=== PATIENT | female | born 1965 | race Caucasian/White ===

== ENCOUNTER 2019-09-09 17:59 | Inpatient (IN) ==
--- OUTSIDE RECORDS SUMMARY | 2019-09-09 18:01 | External Medical Summary | Continuity of Care Document ---
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 Refills: 0 Procedures History of Oral Surgery Tooth Extraction Status: Completed History of Partial Colectomy - Sigmoid S tatus: Completed History of Exploratory Laparotomy Status : Completed History of Colostomy Status: Completed History of Hysteroscopy With Endometrial Ablation Status: Completed Immunizations Immunizations not documented Family History Unknown Family Member Family history of Diabetes Mellitus (V18.0) Status: Active Comments: Family History Social History - Smoking Status Never smoked tobacco Plan of Treatment Planned Observations Planned Goals not documented Results No Known Results Results not documented
--- NOTE | 2019-09-09 18:52 | Emergency Department Note ---
Impression & Plan Acute pancreatitis, Abdominal pain, Transaminitis ED Provider Note NAME: DOTTY BARAJAS AGE: 54 SEX: F : 1965 ARRIVES VIA: Walk-In INFORMANT: Patient, ED PROVIDER(S): Braulio Browne MD Chief Complaint: Abdominal pain HPI: Patient states that she has been having some intermittent left-sided upper abdominal pain. Worse within the last 7 days. Especially worse today and constant. Patient describes it as a throbbing pain. Nothing seemed to make it better or worse. Nothing seems to precipitate it but the patient does state that she has a prior history of a large bowel colectomy secondary to ulcerative colitis and adhesions. The patient has seen a Dr. Mejia at [facility]. Patient has not taken anything for pain. Patient does not present with cough, fevers, chills, coronavirus contacts, coronavirus testing, or recent travel. Patient denies blood in the urine or stool. Patient last bowel movement was today and she states that given her large bowel surgeries she typically has loose stools at baseline. ROS: See HPI for pertinent positives and negatives. A total of 10 systems were reviewed and otherwise negative. Past medical history: See below Surgical history: See below Social history: See below Physical Exam: GENERAL: Well appearing, well nourished, NAD, non-toxic. EYE EXAM: Normal conjunctiva. PERRL, no anisocoria and EOM's grossly intact w/o pain. NECK: Supple, no nuchal rigidity, no adenopathy, non-tender. No signs of meningismus. LUNGS: Clear to auscultation. Normal chest wall mechanics. HEART: NSR, no MRG. ABDOMEN: Abdomen soft, mild abdominal pain in the epigastric and left-sided upper and lateral pain without overlying skin changes, normo-active bowel so unds, no masses, no rebound or guarding. BACK: No CVA TTP. SKIN: No rashes and no bruising. UPPER EXTREMITIES: Upper extremities are grossly normal. LOWER EXTREMITIES: Grossly normal, no edema. NEURO EXAM: A&O x3, cranial nerves II-XII grossly intact, normal speech, moves all 4 extremities on command w/o issue. Differential diagnoses: Appendicitis, ovarian cyst, ovarian torsion, ectopic , TOA, PID, infections, diverticulitis, UTI, obstruction, mesenteric ischemia, aortic pathology, inflammatory bowel disease, renal colic, PUD, pancreatitis, biliary pathology, hernia, volvulus, constipation, as well as other pathologies. Course: Patient was seen and evaluated the bedside. Full history physical exam was performed. EKG: None Imaging Studies: Radiology results as stated below per my review in the radiologist's interpretation: CT SCAN OF THE ABDOMEN AND PELVIS WITH IV CONTRAST CLINICAL HISTORY: Epigastric abdominal pain. COMPARISON STUDY: Fluoroscopic upper GI series and small bowel follow-through dated 04/28/2008. TECHNIQUE: Following the IV administration of 93 cc of Optiray 320, CT scan of the abdomen and pelvis is performed from the lung bases to the proximal femora. Images are reviewed in the axial, sagittal, and coronal planes. IV contrast was administered without complication. A dose lowering technique was utilized adhering to the principles of ALARA. CT DOSE: 1667.92 mGy.cm FINDINGS: Lung bases: The heart is normal in size and without pericardial effusion. The lung bases are clear noting dependent atelectasis. Liver: The contrast-enhanced liver is enlarged, measuring 20.3 cm in length. The liver demonstrates diffusely diminished attenuation consistent with hepatic steatosis. There is no intrahepatic biliary ductal dilatation. The hepatic veins and portal veins are patent. Gallbladder: There are calcified gallstones with no CT evidence of acute cholecystitis. Spleen: Normal in size and attenuation. Pancreas: Mild stranding and fluid is suggested in the pancreatic tail. No organized Fluid collection is seen. The pancreas enhances homogeneously. Adrenal glands: Unremarkable. Kidneys: The contrast enhanced kidneys are normal in size and without hydronephrosis. The kidneys enhance symmetrically. Abdominal vasculature: The abdominal aorta is normal in course and caliber. Bowel: Postoperative change is consistent with lower anterior resection and subtotal colectomy with anastomosis. A small bowel anastomosis is seen in the right lower quadrant. There is evidence of active colic anastomosis A periumbilical hernia contains nonobstructed loops of small bowel. No bowel obstruction is identified. Peritoneum: There is no intraperitoneal free air or abdominal ascites. There are 2 umbilical hernias, one of which contains small bowel loops. Lymphadenopathy: None. Pelvic viscera: The bladder, uterus, and adnexa are normal as imaged. Skeletal structures: The skeletal structures are osteopenic. There is mild lumbosacral spondylosis. Sclerotic change is noted in the sacroiliac joints. No lytic or blastic lesions are seen. IMPRESSION: 1. Findings suggest mild acute pancreatitis. Correlation with clinical findings and serum amylase/lipase levels will be required. 2. Hepatomegaly and hepatic steatosis. 3. Cholelithiasis. 4. There is postoperative change from subtotal colectomy and bowel anastomoses. No bowel obstruction is identified. 5. A periumbilical hernia contains nonobstructed small bowel loops. 6. Additional findings as above. ACT 112: Negative or not required by law. Electronically signed by: Juan F Flowers M.D. 09/09/2019 8:19 PM Cardiac monitoring: An order was placed for continuous cardiac monitoring. The monitor shows a rate of 95 with sinus rhythm. MDM: She was seen for abdominal pain. Blood work was obtained along with a CT of the abdomen pelvis. Patient was given IV fluids and pain medication. As needed Zofran also ordered. Patient has normal white count. The patient's LFTs are elevated along with lipase. CT of the abdomen pelvis shows acute pancreatitis. Associated cholelithiasis and hepatomegaly. No bowel obstruction. There is no evidence of acute cholecystitis on CT. The patient also does not have associated intrahepatic biliary ductal dilatation. I did discuss with the patient that this could be related to inflammatory change from the pancreatitis. Another consideration would be like gallstones. The patient does not appear to have ascending cholangitis at this time as the patient has a normal white count and is afebrile. Furthermore, the patient lacks right upper quadrant pain. I did speak with the on-call hospitalist Dr. Pang who agreed to further evaluate treat the patient. I did update the patient. Patient was subsequently admitted to the [facility] service. Past Med/Surg History Medical History Abdominal adhesions Ulcerative colitis s/p colectomy in 1999 at [facility] Surgical History History of colectomy Family History Mother Diabetes Father Coronary heart disease Social History Preferred Language: Hebrew Communication Ability: Effective Beliefs That Will Affect Care: None Current Living Situation: Spouse Current Living Situation Comment: lives with Other Information That Helps Us Care for You: No Feels Safe at Home: Yes Safety Concerns: Feels Safe At This Time Smoking Status: Never smoker Hx Alcohol Use: No Hx Substance Use: No Allergies Allergies Allergy/AdvReac Type Severity Reaction Status Date / Time mercaptopurine Allergy Unknown Unknown Verified 09/09/19 20:38 Home Meds Home Medications Medication Instructions Recorded Confirmed multivitamin 1 tab PO DAILY 09/09/19 09/09/19 Results & Data (ED) Vital Signs Vital Signs - 24 hr 09/09/19 18:03 09/09/19 18:54 Temperature 37.3 C Temperature Source Oral Pulse Rate 95 H Pulse Rhythm Regular Pulse Strength Normal Respiratory Rate 18 Respiratory Effort / Characteristics Non-Labored Spontaneous Respiratory Depth Normal Respiratory Pattern Regular Blood Pressure 185/103 H Blood Pressure Mean 130 Blood Pressure Position Sitting Pulse Oximetry 97 Oxygen Delivery Method Room Air Room Air Sepsis Recent Fever Within 48 Hours No Sepsis New/Unexplained Change in Mental Status No Sepsis Action Taken by Nursing No Action Required Home Medications Current Medication List: was personally reviewed by me Laboratory Data Attestation: I reviewed the patient's lab results. Result diagrams: 09/10/19 06:23 09/10/19 06:23 Lab Results 09/09/19 09/09/19 09/09/19 Range/Units 19:15 19:40 19:40 WBC 6.68 (4.8-10.8) K/uL RBC 5.66 H (4.2-5.4) M/uL Hgb 15.5 (12.0-16.0) g/dL POC Hgb (12.0-16.0) g/dl Hct 44.5 (37-47) % POC Hct (37-47) % MCV 78.6 L (80-100) fL MCH 27.4 (25-34) pg MCHC 34.8 (32-36) g/dL RDW Std Deviation 41.3 (36.4-46.3) fL RDW Coeff of Rae 14.5 (11.5-14.5) % Plt Count 266 (130-400) K/uL MPV 10.3 (7.4-10.4) fL Immature Gran % (Auto) 0.1 % Neut % (Auto) 62.5 % Lymph % (Auto) 27.1 % Sheridan % (Auto) 7.9 % Eos % (Auto) 2.1 % Baso % (Auto) 0.3 % Immature Gran # (Auto) 0.01 (0.00-0.02) K/uL Neut # (Auto) 4.17 (1.4-6.5) K/uL Lymph # (Auto) 1.81 (1.2-3.4) K/uL Sheridan # (Auto) 0.53 (0.11-0.59) K/uL Eos # (Auto) 0.14 (0-0.5) K/uL Baso # (Auto) 0.02 (0-0.2) K/uL PT (9.0-12.0) Seconds INR (0.9-1.1) APTT (21.0-31.0) Seconds PTT Ratio POC Sodium (135-144) mmol/L Sodium 137 (136-145) mmol/L POC Potassium (3.3-5.0) mmol/L Potassium 4.3 (3.5-5.1) mmol/L POC Chloride (101-112) mmol/L Chloride 104 (98-107) mmol/L Carbon Dioxide 23 (21-32) mmol/L POC Total CO2 (24-31) mmol/L Anion Gap 10.0 (3-11) POC Anion Gap (16-25) mmol/L POC BUN (7-18) mg/dl BUN 12 (7-18) mg/dl Creatinine 1.07 (0.6-1.2) mg/dl POC Creatinine (0.6-1.3) mg/dl Est Cr Clr Drug Dosing 73.0 ml/min Est GFR ( Amer) 67.2 Est GFR (Non-Af Amer) 58.0 BUN/Creatinine Ratio 11.4 (10-20) Glucose 133 H (70-99) mg/dl POC Glucose (other) (70-99) mg/dl Calcium 9.7 (8.5-10.1) mg/dl POC Ioniz Calcium Elier (1.12-1.32) mmol/l Total Bilirubin 3.8 H (0.2-1) mg/dl AST 639 H (15-37) U/L ALT 617 H (12-78) U/L Alkaline Phosphatase 291 H (45-117) U/L Total Protein 8.7 H (6.4-8.2) gm/dl Albumin 3.7 (3.4-5.0) gm/dl Globulin 5.0 H (2.5-4.0) gm/dl Albumin/Globulin Ratio 0.7 L (0.9-2) Lipase 79853 H (73-393) U/L Urine Color Dark Yellow Urine Appearance Clear (Clear) Urine pH 5.5 (4.5-7.5) Ur Specific Truman 1.026 (1.000-1.030) Urine Protein 2+ H (Negative) Urine Glucose (UA) Negative (Negative) Urine Ketones Negative (Negative) Urine Blood Negative (Negative) Urine Nitrite Positive A (Negative) Urine Bilirubin 3+ H (Negative) Urine Urobilinogen Negative (Negative) Ur Leukocyte Esterase 2+ H (Negative) Urine WBC (Auto) 10-30 H (0-5) /hpf Urine RBC (Auto) 0-4 (0-4) /hpf U Hyaline Cast (Auto) 1-5 (0-5) /lpf U Epithel Cells (Auto) 0-5 (0-5) /lpf Urine Bacteria (Auto) Negative (Negative) Granular Casts 1-5 H (0) /lpf Urine Yeast Not Reportable 09/09/19 09/09/19 Range/Units 19:40 19:49 WBC (4.8-10.8) K/uL RBC (4.2-5.4) M/uL Hgb (12.0-16.0) g/dL POC Hgb 16.3 H (12.0-16.0) g/dl Hct (37-47) % POC Hct 48 H (37-47) % MCV (80-100) fL MCH (25-34) pg MCHC (32-36) g/dL RDW Std Deviation (36.4-46.3) fL RDW Coeff of Rae (11.5-14.5) % Plt Count (130-400) K/uL MPV (7.4-10.4) fL Immature Gran % (Auto) % Neut % (Auto) % Lymph % (Auto) % Sheridan % (Auto) % Eos % (Auto) % Baso % (Auto) % Immature Gran # (Auto) (0.00-0.02) K/uL Neut # (Auto) (1.4-6.5) K/uL Lymph # (Auto) (1.2-3.4) K/uL Sheridan # (Auto) (0.11-0.59) K/uL Eos # (Auto) (0-0.5) K/uL Baso # (Auto) (0-0.2) K/uL PT 10.0 (9.0-12.0) Seconds INR 0.9 (0.9-1.1) APTT 21.0 (21.0-31.0) Seconds PTT Ratio 0.8 POC Sodium 138 (135-144) mmol/L Sodium (136-145) mmol/L POC Potassium 4.4 (3.3-5.0) mmol/L Potassium (3.5-5.1) mmol/L POC Chloride 105 (101-112) mmol/L Chloride (98-107) mmol/L Carbon Dioxide (21-32) mmol/L POC Total CO2 22 L (24-31) mmol/L Anion Gap (3-11) POC Anion Gap 17.0 (16-25) mmol/L POC BUN 13 (7-18) mg/dl BUN (7-18) mg/dl Creatinine (0.6-1.2) mg/dl POC Creatinine 0.9 (0.6-1.3) mg/dl Est Cr Clr Drug Dosing ml/min Est GFR ( Amer) Est GFR (Non-Af Amer) BUN/Creatinine Ratio (10-20) Glucose (70-99) mg/dl POC Glucose (other) 135 H (70-99) mg/dl Calcium (8.5-10.1) mg/dl POC Ioniz Calcium Elier 1.12 (1.12-1.32) mmol/l Total Bilirubin (0.2-1) mg/dl AST (15-37) U/L ALT (12-78) U/L Alkaline Phosphatase (45-117) U/L Total Protein (6.4-8.2) gm/dl Albumin (3.4-5.0) gm/dl Globulin (2.5-4.0) gm/dl Albumin/Globulin Ratio (0.9-2) Lipase (73-393) U/L Urine Color Urine Appearance (Clear) Urine pH (4.5-7.5) Ur Specific Truman (1.000-1.030) Urine Protein (Negative) Urine Glucose (UA) (Negative) Urine Ketones (Negative) Urine Blood (Negative) Urine Nitrite (Negative) Urine Bilirubin (Negative) Urine Urobilinogen (Negative) Ur Leukocyte Esterase (Negative) Urine WBC (Auto) (0-5) /hpf Urine RBC (Auto) (0-4) /hpf U Hyaline Cast (Auto) (0-5) /lpf U Epithel Cells (Auto) (0-5) /lpf Urine Bacteria (Auto) (Negative) Granular Casts (0) /lpf Urine Yeast Administered Medications Hydromorphone HCl (Dilaudid) 0.5 mg IV Q4H PRN PRN Reason: Severe Pain Stop: 09/23/19 22:45 Last Admin: 09/10/19 03:54 Dose: 0.5 mg Documented by: [id number] Admin: 09/09/19 23:40 Dose: 0.5 mg Documented by: [id number] Lactated Ringer's (Lr) 1,000 mls @ 150 mls/hr IV .Q6H40M [facility] Stop: 10/09/19 22:45 Last Admin: 09/10/19 17:03 Dose: 150 mls/hr Documented by: [id number] Infusion: 09/10/19 16:54 Dose: 150 mls/hr Documented by: [id number] Admin: 09/10/19 10:13 Dose: 150 mls/hr Documented by: [id number] Infusion: 09/10/19 10:03 Dose: 0 mls/hr Documented by: [id number] Infusion: 09/10/19 09:29 Dose: 250 mls/hr Documented by: [id number] Infusion: 09/10/19 07:42 Dose: 0 mls/hr Documented by: [id number] Admin: 09/10/19 03:50 Dose: 250 mls/hr Documented by: [id number] Infusion: 09/10/19 03:40 Dose: 250 mls/hr Documented by: [id number] Admin: 09/09/19 23:40 Dose: 250 mls/hr Documented by: [id number] Piperacillin Sod/Tazobactam (Sod 4.5 gm/ Dextrose) 120 mls @ 30 mls/hr IV Q8H [facility]; Protocol Stop: 09/20/19 03:59 Last Infusion: 09/10/19 16:35 Dose: 0 mls/hr Documented by: [id number] Admin: 09/10/19 12:35 Dose: 30 mls/hr Documented by: [id number] Infusion: 09/10/19 10:33 Dose: 0 mls/hr Documented by: [id number] Infusion: 09/10/19 09:29 Dose: 30 mls/hr Documented by: [id number] Infusion: 09/10/19 07:43 Dose: 0 mls/hr Documented by: [id number] Admin: 09/10/19 04:28 Dose: 30 mls/hr Documented by: [id number] Ondansetron HCl (Zofran) 4 mg IV Q6H PRN PRN Reason: Nausea Stop: 10/09/19 22:45 Last Admin: 09/10/19 10:14 Dose: 4 mg Documented by: [id number] Discontinued Medications Sodium Chloride (Nss 1000ml) 1,000 mls @ 999 mls/hr IV .Q1H1M ONE Stop: 09/09/19 19:54 Last Infusion: 09/10/19 07:02 Dose: 0 mls/hr Documented by: [id number] Admin: 09/09/19 19:41 Dose: 999 mls/hr Documented by: [id number] Piperacillin Sod/Tazobactam Sod (Zosyn) 4.5 gm in 120 mls @ 200 mls/hr IV NOW STA; Protocol Stop: 09/09/19 22:11 Last Infusion: 09/09/19 23:47 Dose: 0 mls/hr Documented by: [id number] Admin: 09/09/19 22:39 Dose: 200 mls/hr Documented by: [id number] Indomethacin (Indocin) 100 mg NV ONE ONE Stop: 09/10/19 07:10 Last Admin: 09/10/19 08:55 Dose: 100 mg Documented by: [id number] Ioversol (Optiray 320 100ml) 93 ml IV ONCE PRN PRN Reason: Interaction Checking Stop: 09/13/19 19:58 Last Admin: 09/09/19 19:59 Dose: 93 ml Documented by: [id number] Morphine Sulfate (Morphine Sulfate) 4 mg IV NOW STA Stop: 09/09/19 18:55 Last Admin: 09/09/19 19:42 Dose: 4 mg Documented by: [id number] Morphine Sulfate (Morphine Sulfate) 6 mg IV NOW STA Stop: 09/09/19 20:33 Last Admin: 09/09/19 20:56 Dose: 6 mg Documented by: [id number] Ondansetron HCl (Zofran) 4 mg IV PRN PRN PRN Reason: nausea Stop: 10/09/19 18:53 Last Admin: 09/09/19 19:41 Dose: 4 mg Documented by: [id number] Blood Pressure Blood Pressure Findings: Elevated blood pressure Discharge Plan Visit Data *Final* Discharge Date/Time: 09/09/19 22:45 Chief Complaint: Abdominal Pain Stated Complaint: ABD PAIN ED Provider: Braulio Browne Discharge Problem: Acute pancreatitis, Abdominal pain, Transaminitis Patient Disposition: Admitted As Inpatient Discharge Instructions Interventions: ED Discharge Assessment Last Done: 09/09/19 22:45 Discharge Problem: Acute pancreatitis Qualifiers: Pancreatitis type: unspecified pancreatitis type Acute pancreatitis complication: no infection or necrosis Qualified Code(s): K85.90 - Acute pancrea titis without necrosis or infection, unspecified Abdominal pain Qualifiers: Abdominal location: epigastric Qualified Code(s): R10.13 - Epigastric pain
[2019-09-09] MEDS ORDERED: SODIUM CHLORIDE 0.9% 1000ML 1,000 ML IV ONE (18:54)
[2019-09-09] MEDS ORDERED: MoRPHine SULFATE 4 MG/ML 1 ML CARP\\VIAL IV STA (18:54)
[2019-09-09] MEDS ORDERED: ONDANSETRON INJ 2 MG/ML 2 ML VIAL IV PRN ×2 (18:54→22:46)
[2019-09-09 19:51] LABS: Basophils # (auto) 0.02 K/uL (0-0.2); Basophils % (auto) 0.3 %; Eosinophils # (auto) 0.14 K/uL (0-0.5); Eosinophils % (auto) 2.1 %; Hematocrit (blood only) 44.5 % (37-47); Hemoglobin 15.5 g/dL (12.0-16.0); Immature Granulocytes # (auto) 0.01 K/uL (0.00-0.02); Immature Granulocytes % (auto) 0.1 %; Lymphocytes # (auto) 1.81 K/uL (1.2-3.4); Lymphocytes % (auto) 27.1 %; Mean Corpuscular Hemoglobin 27.4 pg (25-34); Mean Corpuscular Hgb Conc 34.8 g/dL (32-36); Mean Corpuscular Volume 78.6 fL (80-100); Mean Platelet Volume 10.3 fL (7.4-10.4); Monocytes # (auto) 0.53 K/uL (0.11-0.59); Monocytes % (auto) 7.9 %; Neutrophils # (auto) 4.17 K/uL (1.4-6.5); Neutrophils % (auto) 62.5 %; Platelet Count 266 K/uL (130-400); RDW Coefficient of Variation 14.5 % (11.5-14.5); RDW Standard Deviation 41.3 fL (36.4-46.3); Red Blood Count 5.66 M/uL (4.2-5.4); White Blood Count 6.68 K/uL (4.8-10.8)
[2019-09-09 19:57] LABS: Appearance Urine Clear (Clear); Bacteria Urine Automated Negative (Negative); Blood Urine Negative (Negative); Color Urine Dark Yellow; Epithelial Cell Urine Auto 0-5 /lpf (0-5); Glucose Urine UA Negative (Negative); Ketones Urine Negative (Negative); Leukocyte Esterase Urine 2+ (Negative); Nitrite Urine Positive (Negative); Protein Urine 2+ (Negative); RBC Urine Automated 0-4 /hpf (0-4); Specific Gravity Urine 1.026 (1.000-1.030); Urobilinogen Urine Negative (Negative); pH Urine 5.5 (4.5-7.5)
[2019-09-09] MEDS ORDERED: IOVERSOL 100ml IV PRN (19:59)
[2019-09-09 20:01] LABS: iSTAT Creatinine 0.9 mg/dl (0.6-1.3); iSTAT Hemoglobin 16.3 g/dl (12.0-16.0); iSTAT Ionized Calcium 1.12 mmol/l (1.12-1.32); iSTAT Potassium 4.4 mmol/L (3.3-5.0)
[2019-09-09 20:07] LABS: BUN Creatinine Ratio 11.4 (10-20); Est GFR (African American) 67.2; Potassium 4.3 mmol/L (3.5-5.1)
[2019-09-09 20:08] LABS: Albumin Level 3.7 gm/dl (3.4-5.0); Calcium 9.7 mg/dl (8.5-10.1)
[2019-09-09 20:09] LABS: Bilirubin Urine 3+ (Negative)
[2019-09-09 20:10] LABS: Ictotest Urine Positive (Negative)
[2019-09-09 20:10] LABS: Albumin Globulin Ratio 0.7 (0.9-2); Bilirubin,Total 3.8 mg/dl (0.2-1); Total Protein 8.7 gm/dl (6.4-8.2)
--- NOTE | 2019-09-09 20:20 | CT Scan Report ---
CT SCAN OF THE ABDOMEN AND PELVIS WITH IV CONTRAST CLINICAL HISTORY: Epigastric abdominal pain. COMPARISON STUDY: Fluoroscopic upper GI series and small bowel follow-through dated 04/28/2008. TECHNIQUE: Following the IV administration of 93 cc of Optiray 320, CT scan of the abdomen and pelvi s is performed from the lung bases to the proximal femora. Images are reviewed in the axial, sagittal , and coronal planes. IV contrast was administered without complication. A dose lowering technique wa s utilized adhering to the principles of ALARA. CT DOSE: 1667.92 mGy.cm FINDINGS: Lung bases: The heart is normal in size and without pericardial effusion. The lung bases are clear no ting dependent atelectasis. Liver: The contrast-enhanced liver is enlarged, measuring 20.3 cm in length. The liver demonstrates d iffusely diminished attenuation consistent with hepatic steatosis. There is no intrahepatic biliary d uctal dilatation. The hepatic veins and portal veins are patent. Gallbladder: There are calcified gallstones with no CT evidence of acute cholecystitis. Spleen: Normal in size and attenuation. Pancreas: Mild stranding and fluid is suggested in the pancreatic tail. No organized Fluid collection is seen. The pancreas enhances homogeneously. Adrenal glands: Unremarkable. Kidneys: The contrast enhanced kidneys are normal in size and without hydronephrosis. The kidneys enh ance symmetrically. Abdominal vasculature: The abdominal aorta is normal in course and caliber. Bowel: Postoperative change is consistent with lower anterior resection and subtotal colectomy with a nastomosis. A small bowel anastomosis is seen in the right lower quadrant. There is evidence of activ e colic anastomosis A periumbilical hernia contains nonobstructed loops of small bowel. No bowel obst ruction is identified. Peritoneum: There is no intraperitoneal free air or abdominal ascites. There are 2 umbilical hernias, one of which contains small bowel loops. Lymphadenopathy: None. Pelvic viscera: The bladder, uterus, and adnexa are normal as imaged. Skeletal structures: The skeletal structures are osteopenic. There is mild lumbosacral spondylosis. S clerotic change is noted in the sacroiliac joints. No lytic or blastic lesions are seen. IMPRESSION: 1. Findings suggest mild acute pancreatitis. Correlation with clinical findings and serum amylase/lip ase levels will be required. 2. Hepatomegaly and hepatic steatosis. 3. Cholelithiasis. 4. There is postoperative change from subtotal colectomy and bowel anastomoses. No bowel obstruction is identified. 5. A periumbilical hernia contains nonobstructed small bowel loops. 6. Additional findings as above. ACT 112: Negative or not required by law. Electronically signed by: Juan F Flowers M.D. 09/09/2019 8:19 PM
[2019-09-09] MEDS ORDERED: MoRPHine SULFATE 10 MG/ML CARP/VIAL IV STA (20:32)
--- NOTE | 2019-09-09 21:30 | History & Physical Report ---
Date of Service September 09, 2019 Assessment & Plan (1) Acute pancreatitis: (2) Transaminitis: Pancreatitis, likely secondary to gallstones Pt is 54 y/o F with PMH ulcerative colitis s/p colectomy in 1999, h/o abdominal adhesions presented to ER with c/o intermittent abdominal pain x several weeks with progressive worsening. +nausea without vomiting. Has chronic loose stools, denies any increase in amount of loose stools. Denies fever/chills, ETOH use In ER pt afebrile, P: 95, R: 18, BP: 185/103 down to SBP: 145 No leukocytosis, T Bili: 3.8, AST: 639, ALT: 617, Alk Phos: 291, Lipase: 24,617 CT ABD/PELVIS: Findings suggest mild acute pancreatitis. Hepatomegaly and hepatic steatosis. Cholelithiasis. There is postoperative change from subtotal colectomy and bowel anastomoses. No bowel obstruction is identified. periumbilical hernia contains nonobstructed small bowel loops. -In ER given 1L NSS, zofran, morphine total 10mg -NPO -LR @250ml/hr -Dilaudid prn pain, zofran prn nausea -Zosyn -GI consult, Dr Dale aware and recommends MRCP tonight with plans for ERCP tomorrow -CBC, CMP, Liver profile, Lipase in am (3) Ulcerative colitis: S/P colectomy in 1999 DVT Prophylaxis -SCDs Full Code as per discussion with pt Follows with Dr Arlene Ochoa in [place] for routine care Pt was seen and care coordinated with Dr Ramírez. See addendum History of Present Illness Chief Complaint: Abdominal pain Primary Care Provider: Arlene Ochoa Pt is 54 y/o F with PMH ulcerative colitis s/p colectomy in 1999, h/o abdominal adhesions presented to ER with c/o abdominal pain x several weeks. Reports intermittent upper abdominal pain for past several weeks, however on a daily basis the past week with constant aching pain today. C/O nausea, no vomiting. Today eating mashed potatoes for lunch aggravated pain. Reports chronic loose stools, denies any increase in amount of loose stools. Denies fever/chills, diaphoresis, vomiting, melena, hematochezia, DIAL, dizziness, syncope, vision changes, neck pain, CP, SOB, orthopnea, palpitations, cough, sore throat, choking, otalgia, rhinorrhea, paresthesias, weakness, extremity weakness, extremity edema, rashes, urinary symptoms. Allergies Allergy/AdvReac Type Severity Reaction Status Date / Time mercaptopurine Allergy Unknown Unknown Verified 09/09/19 20:38 Home Medications Home Medications Medication Instructions Recorded Confirmed Type multivitamin 1 tab PO DAILY 09/09/19 09/09/19 History Past Med/Surg History Medical History Abdominal adhesions Ulcerative colitis s/p colectomy in 1999 at [facility] Surgical History History of colectomy Family History Mother Diabetes Father Coronary heart disease Social History Preferred Language: Uzbek Communication Ability: Effective Beliefs That Will Affect Care: None Current Living Situation: Spouse Current Living Situation Comment: lives with Other Information That Helps Us Care for You: No Feels Safe at Home: Yes Safety Concerns: Feels Safe At This Time Smoking Status: Never smoker Hx Alcohol Use: No Hx Substance Use: No Review of Systems Review of Systems: All systems reviewed & are unremarkable except as noted in HPI & below Physical Exam Physical Exam: General: no distress, obese Head: normocephalic, atraumatic Eyes: PERRL, EOM's intact, conjunctiva non-injected, anicteric ENT: normal inspection external ears, nose, mucous membranes moist Neck: supple, trachea midline, non-tender Lungs: clear, no respiratory distress, no wheezing/rhonchi/rales CV: RRR, no murmur, no pretibial edema Abd: normal BS, protuberant, soft, +tenderness to palpation epigastric, RUQ, LUQ without rebound or guarding Ext: no cyanosis, no calf tenderness Neuro: A&O x 3, no focal deficits noted, normal affect Skin: warm, dry Results & Data Results & Data ([facility]) Vital Signs (Past 12 Hours) Vital Signs Temp Pulse Resp BP Pulse Ox 09/09/19 18:03 37.3 C 95 H 18 185/103 H 97 Laboratory Results Short CBC 09/09/19 Range/Units 19:40 WBC 6.68 (4.8-10.8) K/uL Hgb 15.5 (12.0-16.0) g/dL Hct 44.5 (37-47) % Plt Count 266 (130-400) K/uL BMP 09/09/19 19:40 Sodium 137 Potassium 4.3 Chloride 104 Carbon Dioxide 23 BUN 12 Creatinine 1.07 Glucose 133 H Calcium 9.7 Liver Function 09/09/19 Range/Units 19:40 Total Bilirubin 3.8 H (0.2-1) mg/dl AST 639 H (15-37) U/L ALT 617 H (12-78) U/L Alkaline Phosphatase 291 H (45-117) U/L Albumin 3.7 (3.4-5.0) gm/dl Urine 09/09/19 Range/Units 19:15 Urine Color Dark Yellow Urine Appearance Clear (Clear) Urine pH 5.5 (4.5-7.5) Ur Specific [place] 1.026 (1.000-1.030) Urine Protein 2+ H (Negative) Urine Glucose (UA) Negative (Negative) Diagnostic Findings CT ABD/PELVIS: IMPRESSION: 1. Findings suggest mild acute pancreatitis. Correlation with clinical findings and serum amylase/lipase levels will be required. 2. Hepatomegaly and hepatic steatosis. 3. Cholelithiasis. 4. There is postoperative change from subtotal colectomy and bowel anastomoses. No bowel obstruction is identified. 5. A periumbilical hernia contains nonobstructed small bowel loops. Supervising Physician Co-Signing Physician Notes Pt was seen and examined. Agreed with Dianne PAINTER exam, assessment and plan. 54 y/o F with H ulcerative colitis s/p colectomy in 1999, h/o abdominal adhesions presented to ER with worsening abdominal pain. Pt said that she has been having intermittent abdominal pain for the last several weeks. She said that pain got worst today associated with nausea. She said that her abdominal pain is diffused. She said that she does have chronic loose stools as baseline. Denies an chest pain, palpitation, dizziness, SOB, no sick contact or anyone tested positive with Covid-19. Lab on admission showed AST and LFT above 600's, Alk phophatase 291, Lipase 95816. CT abd/pelvis showed finding Findings suggest mild acute pancreatitis. Received IVF and morphine in the ER. GI consult. Case d iscussed with GI recommended MRCP. Will keep NPO for possible ERCP tomorrow. Continue IV hydration and pain control. Will start on IV Zosyn for now as per GI. Will avoid hepatotoxic agents. Continue monitor liver enzymes. MD Desiree (1) Acute pancreatitis Acute pancreatitis complication: no infection or necrosis Pancreatitis type: unspecified pancreatitis type Qualified Code(s): K85.90 - Acute pancreatitis without necrosis or infection, unspecified
[2019-09-09] MEDS ORDERED: PIPERACILLIN/TAZOBACTAM 4.5 GM/120 ML BAG IV STA (21:36)
[2019-09-09] MEDS ORDERED: PIPERACILL/TAZOBAC CONSULT ACTIVE PRN (21:38)
[2019-09-09 21:46] LABS: INR 0.9 (0.9-1.1); Partial Thromboplastin Ratio 0.8
--- NOTE | 2019-09-09 22:28 | Magnetic Resonance Report ---
MRCP CLINICAL HISTORY: Pancreatitis. COMPARISON STUDY: Abdominal CT performed the same day 09/09/2019. TECHNIQUE: Abdominal MRCP is performed using various T2-weighted sequences in the axial and coronal p lanes. 3-D reformats are created and assessed. IV contrast was not administered for this examination. FINDINGS: Small gallstones are noted in the fundal region, best seen on the axial series. The gallbladder is ot herwise normal in appearance. There is no intra or extrahepatic biliary ductal dilatation. The common bile duct measures up to 5 mm in diameter. There is a small filling defect within the distal common bile duct seen on coronal high-resolution MRCP image #91. This is suspicious for choledocholithiasis. The pancreatic duct is normal in caliber. The liver is enlarged, measuring 19 cm in length. There is evidence of steatosis. The unenhanced live r is otherwise grossly unremarkable. The unenhanced spleen, adrenal glands, and kidneys are grossly n ormal. Minimal stranding and trace fluid is seen adjacent the pancreatic head. This is consistent wit h the reported history of acute pancreatitis. The pancreas is otherwise normal in appearance. No orga nized peripancreatic fluid collection is identified. The abdominal aorta is normal in caliber. There is no bowel obstruction. The bony structures demonstrate normal marrow signal intensity. IMPRESSION: 1. Findings of mild acute pancreatitis are again seen adjacent the pancreatic tail. 2. Cholelithiasis without evidence of acute cholecystitis. 3. There is no intra or extrahepatic biliary ductal dilatation. 4. Suspect choledocholithiasis with a small stone in the distal common duct near the pancreatic head. 5. Hepatomegaly and hepatic steatosis. Electronically signed by: Juan F Flowers M.D. 09/09/2019 10:27 PM
[2019-09-09] MEDS: LACTATED RINGER'S 1,000 ML IV SCH (23:40)
[2019-09-09] MEDS: HYDROmorphone INJ 0.5 MG/0.5 ML SYR IV PRN (23:40)
[2019-09-10] MEDS: LACTATED RINGER'S 1,000 ML IV SCH ×4 (03:50→23:49)
[2019-09-10] MEDS: HYDROmorphone INJ 0.5 MG/0.5 ML SYR IV PRN (03:54)
[2019-09-10] MEDS: PIPERACILLIN/TAZOBACTAM 4.5 GM in DEXTROSE 5% 100 ML IV SCH ×3 (04:28→20:58)
--- NOTE | 2019-09-10 07:08 | Gastrointestinal Consultation ---
Date of Consultation September 10, 2019 Assessment & Plan (1) Acute pancreatitis: Patient presents with worsening abdominal discomfort found to have evidence of pancreatitis. Imaging reveals a gallstone in the distal common bile duct. In addition the patient has significant ovation of her liver transaminases in addition to her bilirubin which was 3.8 yesterday. Planning for urgent ERCP for biliary decompression and possible biliary stent placement. We have discussed the risks and benefits of the procedure to include bleeding, infection, perforation, pancreatitis and failed biliary cannulation. Recommendations Continue with IV hydration at 150 mL/h Continue with broad-spectrum antibiotic coverage the nature of her pancreatitis ERCP pending for today General surgery consultation recommended for cholecystectomy History of Present Illness Reason for Consultation: Gallstone pancreatitis Attending Physician: Merrill Ramírez MD History of Present Illness Pt is 54 y/o F with PMH ulcerative colitis s/p colectomy in 1999, h/o abdominal adhesions presented to ER on 09/08 with c/o abdominal pain x several weeks. Reports intermittent upper abdominal pain for past several weeks, however on a daily basis the past week with constant aching pain today. C/O nausea, no vomiting. She was eating mashed potatoes for lunch on Thursday which aggravated her pain. Denies fever/chills, diaphoresis, vomiting, melena, hematochezia, DIAL, dizziness, syncope, vision changes, neck pain, CP, SOB, orthopnea, palpitations, cough, sore throat, choking, otalgia, rhinorrhea, paresthesias, weakness, extremity weakness, extremity edema, rashes, urinary symptoms. Allergies Allergy/AdvReac Type Severity Reaction Status Date / Time mercaptopurine Allergy Unknown Unknown Verified 09/09/19 20:38 Home Medications Home Medications Medication Instructions Recorded Confirmed Type multivitamin 1 tab PO DAILY 09/09/19 09/09/19 History Patient History Medical History Abdominal adhesions Ulcerative colitis s/p colectomy in 1999 at [facility] [place] Surgical History History of colectomy Family History Mother Diabetes Father Coronary heart disease Social History Preferred Language: Martiniquais Communication Ability: Effective Beliefs That Will Affect Care: None Current Living Situation: Spouse Current Living Situation Comment: lives with Other Information That Helps Us Care for You: No Feels Safe at Home: Yes Safety Concerns: Feels Safe At This Time Smoking Status: Never smoker Hx Alcohol Use: No Hx Substance Use: No Review of Systems Constitutional: no sweats and no weight loss Eyes: no diplopia Ear, Nose, Mouth, Throat: no facial pain and no mouth lesions Respiratory: no change in sputum and no hemoptysis Cardiovascular: no dyspnea at rest Gastrointestinal: + abdominal pain; no early satiety and no vomiting Genitourinary: no urinary frequency Musculoskeletal: no radicular pain Neurologic: no falls and no paralysis Psychiatric: no hopelessness Endocrine: no polydipsia Hematologic / Lymphatic: no coagulopathy Physical Exam Eyes: Scleral icterus noted Neck: trachea midline, no thyromegaly Respiratory: normal respiratory effort, lungs clear to auscultation Cardiovascular: RRR, no murmur, no edema Gastrointestinal (Abdomen): Percussion/Palpation: + abdomen tender; no guarding and abdomen not rigid Neurologic: no focal motor deficits Results & Data ([facility]) Vital Signs (Past 12 Hours) Vital Signs Temp Pulse Pulse Resp BP Pulse Ox 09/10/19 04:00 36.6 C 77 18 141/87 H 96 09/10/19 01:19 73 09/10/19 00:06 36.9 C 66 18 115/57 L 94 09/09/19 22:28 77 18 143/91 H 95 Laboratory Results Laboratory Results - last 24 hr 09/09/19 09/09/19 09/09/19 19:15 19:40 19:40 WBC 6.68 RBC 5.66 H Hgb 15.5 POC Hgb Hct 44.5 POC Hct MCV 78.6 L MCH 27.4 MCHC 34.8 RDW Std Deviation 41.3 RDW Coeff of Rae 14.5 Plt Count 266 MPV 10.3 Immature Gran % (Auto) 0.1 Neut % (Auto) 62.5 Lymph % (Auto) 27.1 [place] % (Auto) 7.9 Eos % (Auto) 2.1 Baso % (Auto) 0.3 Immature Gran # (Auto) 0.01 Neut # (Auto) 4.17 Lymph # (Auto) 1.81 [place] # (Auto) 0.53 Eos # (Auto) 0.14 Baso # (Auto) 0.02 PT INR APTT PTT Ratio POC Sodium Sodium 137 POC Potassium Potassium 4.3 POC Chloride Chloride 104 Carbon Dioxide 23 POC Total CO2 Anion Gap 10.0 POC Anion Gap POC BUN BUN 12 Creatinine 1.07 POC Creatinine Est Cr Clr Drug Dosing 73.0 Est GFR ( Amer) 67.2 Est GFR (Non-Af Amer) 58.0 BUN/Creatinine Ratio 11.4 Glucose 133 H POC Glucose (other) Calcium 9.7 POC Ioniz Calcium Elier Total Bilirubin 3.8 H AST 639 H ALT 617 H Alkaline Phosphatase 291 H Total Protein 8.7 H Albumin 3.7 Globulin 5.0 H Albumin/Globulin Ratio 0.7 L Lipase 34065 H Urine Color Dark Yellow Urine Appearance Clear Urine pH 5.5 Ur Specific [place] 1.026 Urine Protein 2+ H Urine Glucose (UA) Negative Urine Ketones Negative Urine Blood Negative Urine Nitrite Positive A Urine Bilirubin 3+ H Urine Urobilinogen Negative Ur Leukocyte Esterase 2+ H Urine WBC (Auto) 10-30 H Urine RBC (Auto) 0-4 U Hyaline Cast (Auto) 1-5 U Epithel Cells (Auto) 0-5 Urine Bacteria (Auto) Negative Granular Casts 1-5 H Urine Yeast Not Reportable 09/09/19 09/09/19 19:40 19:49 WBC RBC Hgb POC Hgb 16.3 H Hct POC Hct 48 H MCV MCH MCHC RDW Std Deviation RDW Coeff of Rae Plt Count MPV Immature Gran % (Auto) Neut % (Auto) Lymph % (Auto) [place] % (Auto) Eos % (Auto) Baso % (Auto) Immature Gran # (Auto) Neut # (Auto) Lymph # (Auto) [place] # (Auto) Eos # (Auto) Baso # (Auto) PT 10.0 INR 0.9 APTT 21.0 PTT Ratio 0.8 POC Sodium 138 Sodium POC Potassium 4.4 Potassium POC Chloride 105 Chloride Carbon Dioxide POC Total CO2 22 L Anion Gap POC Anion Gap 17.0 POC BUN 13 BUN Creatinine POC Creatinine 0.9 Est Cr Clr Drug Dosing Est GFR ( Amer) Est GFR (Non-Af Amer) BUN/Creatinine Ratio Glucose POC Glucose (other) 135 H Calcium POC Ioniz Calcium [place] 1.12 Total Bilirubin AST ALT Alkaline Phosphatase Total Protein Albumin Globulin Albumin/Globulin Ratio Lipase Urine Color Urine Appearance Urine pH Ur Specific [place] Urine Protein Urine Glucose (UA) Urine Ketones Urine Blood Urine Nitrite Urine Bilirubin Urine Urobilinogen Ur Leukocyte Esterase Urine WBC (Auto) Urine RBC (Auto) U Hyaline Cast (Auto) U Epithel Cells (Auto) Urine Bacteria (Auto) Granular Casts Urine Yeast Diagnostic Findings [place], [place] [phone] Magnetic Resonance Report Patient: DOTTY BARAJAS Date: 09/09/19 MR#: [id number]: [id number] Acct ID:[id number]: Date: 1965[facility] Zip: [id number] Age: 54Location: ED Sex: F Room/Bed: Att Phy:Diagnosis: ABD PAIN Ines Phy: Arlene Ochoa-CService Date: 09/09/19 Fam Phy: Arlene OchoaCInterpreting Phy: Juan F Flowers MD Admit Phy: Ordering Phy: Dianne Oh PA-C cc: ~ MRCP CLINICAL HISTORY: Pancreatitis. COMPARISON STUDY: Abdominal CT performed the same day 09/09/2019. TECHNIQUE: Abdominal MRCP is performed using various T2-weighted sequences in the axial and coronal planes. 3-D reformats are created and assessed. IV contrast was not administered for this examination. FINDINGS: Small gallstones are noted in the fundal region, best seen on the axial series. The gallbladder is otherwise normal in appearance. There is no intra or extrahepatic biliary ductal dilatation. The common bile duct measures up to 5 mm in diameter. There is a small filling defect within the distal common bile duct seen on coronal high-resolution MRCP image #91. This is suspicious for choledocholithiasis. The pancreatic duct is normal in caliber. The liver is enlarged, measuring 19 cm in length. There is evidence of steatosis. The unenhanced liver is otherwise grossly unremarkable. The unenhanced spleen, adrenal glands, and kidneys are grossly normal. Minimal stranding and trace fluid is seen adjacent the pancreatic head. This is consistent with the reported history of acute pancreatitis. The pancreas is otherwise normal in appearance. No organized peripancreatic fluid collection is identified. The abdominal aorta is normal in caliber. There is no bowel obstruction. The bony structures demonstrate normal marrow signal intensity. IMPRESSION: 1. Findings of mild acute pancreatitis are again seen adjacent the pancreatic tail. 2. Cholelithiasis without evidence of acute cholecystitis. 3. There is no intra or extrahepatic biliary ductal dilatation. 4. Suspect choledocholithiasis with a small stone in the distal common duct near the pancreatic head. 5. Hepatomegaly and hepatic steatosis. (1) Acute pancreatitis Acute pancreatitis complication: no infection or necrosis Pancreatitis type: unspecified pancreatitis type Qualified Code(s): K85.90 - Acute pancreatitis without necrosis or infection, unspecified
[2019-09-10] MEDS ORDERED: INDOMETHACIN 50 MG SUPP PR ONE (07:09)
[2019-09-10] MEDS ORDERED: PROPOFOL IV EMULSION 10 MG/ML 20 ML VIAL IV ONE (07:23)
[2019-09-10] MEDS ORDERED: ROCURONIUM BROMIDE 10 MG/ML 5 ML VIAL ONE (07:23)
[2019-09-10] MEDS ORDERED: LIDOCAINE HCL 2% 2 ML VIAL/AMP(20MG/ML) INFIL ONE (07:23)
[2019-09-10] MEDS ORDERED: MIDAZOLAM HCL 1 MG/ML 2ML VIAL ONE (07:24)
[2019-09-10] MEDS ORDERED: fentaNYL citrate 100 MCG/2 ML VIAL ONE (07:24)
[2019-09-10 07:26] LABS: Hematocrit (blood only) 41.7 % (37-47); Mean Corpuscular Hemoglobin 26.9 pg (25-34); Mean Corpuscular Hgb Conc 33.6 g/dL (32-36); Mean Platelet Volume 10.7 fL (7.4-10.4); Platelet Count 248 K/uL (130-400); RDW Standard Deviation 43.8 fL (36.4-46.3); Red Blood Count 5.21 M/uL (4.2-5.4); White Blood Count 8.03 K/uL (4.8-10.8)
--- NOTE | 2019-09-10 07:28 | Anesthesiology Consultation ---
Date of Service September 10, 2019 Assessment & Plan ASA ASA2 Proposed Anesthesia Anesthesia Type: General Risk / Benefits Reviewed With: PT / POA / Parent / Guardian, Accepts Plan and Informed Consent Obtained History Surgery Operation Date: 09/10/19 07:30 Proposed Procedures p Endoscopic Retrograde Cholangiopancreato - Shala Dale Height/Weight Height: 5 ft 4 in Weight: 115.6 kg Allergies Allergy/AdvReac Type Severity Reaction Status Date / Time mercaptopurine Allergy Unknown Unknown Verified 09/09/19 20:38 Medications Home Medications Medication Instructions Recorded Confirmed Last Taken multivitamin 1 tab PO DAILY 09/09/19 09/09/19 Unknown Active Medications Generic Name Dose Route Start Last Admin Trade Name Freq PRN Reason Stop Dose Admin Hydromorphone HCl 0.5 mg 09/09/19 22:46 09/10/19 03:54 Dilaudid IV 09/23/19 22:45 0.5 mg Q4H PRN Administration Severe Pain Lactated Ringer's 1,000 mls @ 250 mls/hr 09/09/19 22:46 09/10/19 03:50 Lr IV 10/09/19 22:45 250 mls/hr .Q4H ROGELIO Administration Piperacillin Sod/Tazobactam 120 mls @ 30 mls/hr 09/10/19 04:00 09/10/19 04:28 Sod 4.5 gm/ Dextrose IV 09/20/19 03:59 30 mls/hr Q8H ROGELIO Administration Protocol NPO Date Last Intake of Fluids: 09/10/19 Time Last Intake of Fluids: 00:00 Date Last Intake of Solids: 09/10/19 Time Last Intake of Solids: 00:00 Past Medical History Medical History Abdominal adhesions Ulcerative colitis s/p colectomy in 1999 at [facility] [place] Exercise / Class Metabolic Activity II 4-5 Yardwork/Stairs/Walk up hill Past Family History Family History Mother Diabetes Father Coronary heart disease Past Surgical History Surgical History History of colectomy Past Anesthesia History No Hx of Anesthesia Complications and No Family Hx of Anesthesia Complications History of PONV No Hx of PONV and No Hx of Motion Sickness Social History Smoking Status: Never smoker Hx Alcohol Use: No Hx Substance Use: No Review of Systems denies fever/cough/ colds/ chest pain/ SOB/ MILVIA Constitutional: no fever and no chills Respiratory: no cough and no dyspnea denies MILVIA Cardiovascular: no chest pain and no dyspnea on exertion Physical Exam Vital Signs Last Vital Signs Temp 36.6 C 09/10/19 04:00 Pulse 77 09/10/19 04:00 Resp 18 09/10/19 04:00 BP 141/87 H 09/10/19 04:00 Pulse Ox 96 09/10/19 04:00 ENMT Mouth: no TMJ abnormality and no dentition abnormality Thyromental Distance: < 3.5 Finger Breadths Mallampati Class: II Neck + short neck and + thick neck; neck extension not limited Respiratory normal respiratory effort; no respiratory distress Auscultation: lungs clear to auscultation bilaterally Cardiovascular Rate/Rhythm: regular rate and regular rhythm Neurologic moves all extremities Psychiatric Orientation: alert and oriented x 3 Testing Laboratory Results 09/10/19 06:23 PT 10.0 Seconds (9.0-12.0) 09/09/19 19:40 INR 0.9 (0.9-1.1) 09/09/19 19:40 APTT 21.0 Seconds (21.0-31.0) 09/09/19 19:40 Urine Color Dark Yellow 09/09/19 19:15 Urine Appearance Clear (Clear) 09/09/19 19:15 Urine pH 5.5 (4.5-7.5) 09/09/19 19:15 Ur Specific [place] 1.026 (1.000-1.030) 09/09/19 19:15 Urine Protein 2+ (Negative) H 09/09/19 19:15 Urine Glucose (UA) Negative (Negative) 09/09/19 19:15 Urine Ketones Negative (Negative) 09/09/19 19:15 Urine Nitrite Positive (Negative) A 09/09/19 19:15 Ur Leukocyte Esterase 2+ (Negative) H 09/09/19 19:15 Urine WBC (Auto) 10-30 /hpf (0-5) H 09/09/19 19:15 Urine RBC (Auto) 0-4 /hpf (0-4) 09/09/19 19:15 U Hyaline Cast (Auto) 1-5 /lpf (0-5) 09/09/19 19:15 U Epithel Cells (Auto) 0-5 /lpf (0-5) 09/09/19 19:15 Urine Bacteria (Auto) Negative (Negative) 09/09/19 19:15 09/09/19 19:49 POC Glucose (other) 135 H
--- NOTE | 2019-09-10 07:35 | History & Physical Bridge Note ---
Date of Service September 10, 2019 History & Physical Bridge Note I have examined the patient, reviewed the History & Physical and in the interval since the performance of the History & Physical I have noted the following changes of clinical significance: no changes noted. We have discussed the risks and benefits of ERCP to include bleeding, infection, perforation, pain, pancreatitis and failed biliary cannulation.
[2019-09-10 07:55] LABS: Albumin Level 3.1 gm/dl (3.4-5.0); BUN Creatinine Ratio 8.9 (10-20); Bilirubin Direct 1.6 mg/dl (0-0.2); Calcium 8.7 mg/dl (8.5-10.1); Creatinine Clr Calc Pharmacy 77.6 ml/min; Est GFR (African American) 72.1; Est GFR (Non-African American) 62.2; Potassium 3.8 mmol/L (3.5-5.1)
[2019-09-10 08:02] LABS: Albumin Globulin Ratio 0.7 (0.9-2); Bilirubin,Total 2.5 mg/dl (0.2-1); Globulin 4.3 gm/dl (2.5-4.0); Total Protein 7.4 gm/dl (6.4-8.2)
[2019-09-10] MEDS ORDERED: SUGAMMADEX SODIUM 200 MG/2 ML VIAL IV ONE ×2 (08:12→08:18)
--- NOTE | 2019-09-10 08:22 | Communication Note ---
Date of Service: September 10, 2019 The patient underwent ERCP this morning. Findings Papillary stenosis, common bile duct stone All stone removed, prophylactic pancreatic stent placed, biliary stent placed Impression: Patient with gallstone pancreatitis status post ERCP this morning with placement of a biliary and pancreatic stent. Would recommend a 7-day course of broad-spectrum antibiotics and a general surgery consultation Recommendations Continue with IV hydration at 150 mL/h Consider a general surgery consultation Continue antibiotic coverage for 7 days Avoid use of nonsteroidals for 1 week
--- NOTE | 2019-09-10 08:22 | Post Operative Brief Note ---
Immediate Post Op Note v1 Date of Surgery September 10, 2019 Pre & Post Diagnosis Operation Date: 09/10/19 07:30 Pre-Op Diagnosis: PANCREATITIS Post-Op Diagnosis: CBD stones / papillary stenosis I identified the patient and participated in the time-out.: Yes Procedure Operation Date: 09/10/19 07:30 Actual Procedures p Endoscopic Retrograde Cholangiopancreato(Not Applicable) - Shala Dale Surgeon Shala Dale Sack Sorter none Estimated Blood Loss 0 Findings Consistent with Post-Op Diagnosis
--- NOTE | 2019-09-10 08:28 | Fluoroscopy Report ---
FL ERCP biliary ductal CLINICAL HISTORY: ERCP COMPARISON STUDY: MRCP 09/09/2019. FLUOROSCOPY TIME: 41 seconds. FINDINGS: 7 fluoroscopic spot images submitted. The ampulla was cannulated and a guidewire is seen wi thin the common bile duct. This is followed by injection of contrast. A balloon sweep was performed. IMPRESSION: Fluoroscopy provided for ERCP. ACT 112: Negative or not required by law. Electronically signed by: Kai Poole M.D. 09/10/2019 8:26 AM
[2019-09-10] MEDS ORDERED: DEXAMETHASONE SOD INJ 4 MG/ML VIAL ONE (08:43)
[2019-09-10] MEDS ORDERED: ONDANSETRON INJ 2 MG/ML 2 ML VIAL ONE (08:43)
[2019-09-10] MEDS ORDERED: ATROPINE SULFATE 0.1 MG/ML 10ML SYR IV PRN (08:53)
[2019-09-10] MEDS ORDERED: ONDANSETRON INJ 2 MG/ML 2 ML VIAL IV PRN (08:53)
[2019-09-10] MEDS ORDERED: fentaNYL citrate 100 MCG/2 ML VIAL IV PRN (08:53)
[2019-09-10] MEDS ORDERED: ePHEDrine sulfate 50 MG/ML AMP IV PRN (08:53)
--- NOTE | 2019-09-10 09:00 | Anesthesiology Progress Note ---
Date of Service September 10, 2019 Anesthesia Post Procedure Vital Signs Vital Signs: Temp Pulse Pulse Pulse Resp BP BP 09/10/19 08:47 37.0 C 84 16 181/88 H 09/10/19 04:00 36.6 C 77 18 141/87 H 09/10/19 01:19 73 09/10/19 00:06 36.9 C 66 18 115/57 L 09/09/19 22:28 77 18 143/91 H 09/09/19 18:03 37.3 C 95 H 18 185/103 H Pulse Ox 09/10/19 08:47 96 09/10/19 04:00 96 09/10/19 01:19 09/10/19 00:06 94 09/09/19 22:28 95 09/09/19 18:03 97 Pain Intensity Abdomen: Pain Intensity: 0 Transfer of Care Handoff Completed per policy Notes Mental Status: alert / awake / arousable and participated in evaluation Patient Amnestic to Procedure: Yes Nausea / Vomiting: adequately controlled Pain: adequately controlled Airway Patency, RR, SpO2: stable & adequate BP & HR: stable & adequate Hydration State: stable & adequate Anesthetic Complications: no major complications apparent and Pt Satisfied with anesthetic care
--- NOTE | 2019-09-10 10:13 | GI REPORT ---
Patient Name: Geovanna Ballard Procedure Date: 09/10/2019 7:45 AM Date of : 1965 Admit Type: Inpatient Age: 54 Gender: Female Attending MD: Shala Dale DO Procedure: ERCP Providers: Shala Dale DO Referring MD: SOFIA VINCENT Indications: Abnormal MRCP, Gallstone associated acute pancreatitis Medicines: General Anesthesia Complications: No immediate complications. Estimated blood loss: Minimal. Estimated Blood Loss: Estimated blood loss was minimal. Procedure: Pre-Anesthesia Assessment: - Prior to the procedure, a History and Physical was performed, and patient medications, allergies and sensitivities were reviewed. The patient's tolerance of previous anesthesia was reviewed. - The risks and benefits of the procedure and the sedation options and risks were discussed with the patient. All questions were answered and informed consent was obtained. - Patient identification and proposed procedure were verified prior to the procedure by the physician, the nurse and the mingler operator. The procedure was verified in the procedure room. - Pre-procedure physical examination revealed no contraindications to sedation. - ASA Grade Assessment: II - A patient with mild systemic disease. - After reviewing the risks and benefits, the patient was deemed in satisfactory condition to undergo the procedure. - The anesthesia plan was to use general anesthesia. - Immediately prior to administration of medications, the patient was re-assessed for adequacy to receive sedatives. - The heart rate, respiratory rate, oxygen saturations, blood pressure, adequacy of pulmonary ventilation, and response to care were monitored throughout the procedure. - The physical status of the patient was re-assessed after the procedure. After obtaining informed consent, the scope was passed under direct vision. Throughout the procedure, the patient's blood pressure, pulse, and oxygen saturations were monitored continuously. The Scope was introduced through the mouth, and advanced to the duodenum and used to inject contrast into the bile duct and dorsal pancreatic duct. The ERCP was accomplished without difficulty. The patient tolerated the procedure well. Findings: The motor vehicle salesperson film was normal. The esophagus was successfully intubated under direct vision without detailed examination of the pharynx, larynx, and associated structures, and upper GI tract. The upper GI tract was grossly normal. The major papilla was on the rim of a diverticulum. The major papilla was congested. Deep cannulation of the dorsal pancreatic duct was accomplished with the short-nosed traction sphincterotome and guidewire during attempted cannulation of the bile duct. The wire was left in place to aid in biliary cannulation and later place a prophylactic pancreatic stent (no dye injected). The bile duct was then deeply cannulated with the short-nosed traction sphincterotome and guidewire. Contrast was injected. I personally interpreted the bile duct images. Contrast extended to the entire biliary tree. The biliary orifice was stenotic. This appeared benign. The lower third of the main bile duct contained filling defect(s) thought to be a stone. Biliary sphincterotomy was made with a monofilament Fusion OMNI sphincterotome using ERBE electrocautery. There was no post-sphincterotomy bleeding. To discover objects, the biliary tree was swept with an 8.5 mm balloon starting at the bifurcation. One stone was removed. No stones remained. One 10 Fr by 8 cm biliary stent with a single external flap and a single internal flap was placed 8 cm into the common bile duct. Bile flowed through the stent. The stent was in good position. One 5 Fr by 7 cm pancreatic stent with a full external pigtail and no internal flaps was placed 7 cm into the ventral pancreatic duct. Clear fluid flowed through the stent. The stent was in good position. The endoscope was withdrawn from the patient. Indomethacin 100 mg was given via suppository to decrease the risk of post-ERCP pancreatitis (PEP). Impression: - The major papilla was on the rim of a diverticulum. - The major papilla appeared congested. - Biliary papillary stenosis, benign. - The examination was suspicious for choledocholithiasis. Removal by biliary sphincterotomy was not accomplished - Biliary stent placed - Prophylactic pancreatic stent placed. Recommendation: - Avoid aspirin and nonsteroidal anti-inflammatory medicines for 1 week. - [facility]. - Refer to a surgeon. - Repeat ERCP in 6 weeks to remove stent. Shala Dale D.O. Shala Dale, 09/10/2019 10:13:21 AM This report has been signed electronically. Note Initiated On: 09/10/2019 7:45 AM Number of Addenda: 0 I attest to the content of the Intraoperative Record and orders documented therein, exceptions below {[id number]}
--- NOTE | 2019-09-10 10:23 | Hospitalist Progress Note ---
Date of Service September 10, 2019 Assessment & Plan (1) Acute pancreatitis: (2) Transaminitis: Pancreatitis, likely secondary to gallstones Per admitting service notes Pt is 54 y/o F with PMH ulcerative colitis s/p colectomy in 1999, h/o abdominal adhesions presented to ER with c/o intermittent abdominal pain x several weeks with progressive worsening. +nausea without vomiting. Has chronic loose stools, denies any increase in amount of loose stools. Denies fever/chills, ETOH use In ER pt afebrile, P: 95, R: 18, BP: 185/103 down to SBP: 145 No leukocytosis, T Bili: 3.8, AST: 639, ALT: 617, Alk Phos: 291, Lipase: 24,617 CT ABD/PELVIS: Findings suggest mild acute pancreatitis. Hepatomegaly and hepatic steatosis. Cholelithiasis. There is postoperative change from subtotal colectomy and bowel anastomoses. No bowel obstruction is identified. periumbilical hernia contains nonobstructed small bowel loops. 09/10/2019 Lipase improved from 24,600 now 6800 LFTs also improving-total bili down from 3.8 now 2.5 Status post ERCP with removal of CBD stone and stent placement by Dr. Lenny Dale General surgeon consulted for cholelithiasis-plan to proceed with laparoscopic cholecystectomy when patient improves further clinically and once lipase and LFTs also improves Continue n.p.o. except for ice chips and sips of water, LR at 100 cc/h, pain control (3) Ulcerative colitis: S/P colectomy in 1999 DVT Prophylaxis -SCDs Full Code as per discussion with pt Follows with Dr Arlene Ochoa in [place] for routine care Admission and Anticipated Discharge Date Admission Date: September 09, 2019 Subjective Follow-up for acute pancreatitis, cholelithiasis Seen resting in bed, status post ERCP Tolerated procedure well, comfortable, not in distress States abdominal pain is less today, no nausea or vomiting No shortness of breath, no fevers or chills No chest pain, palpitations, dizziness, no other symptom Review of Systems Review of Systems: All systems reviewed & are unremarkable except as noted in HPI & below Physical Exam Physical Exam: General- oriented x 3, not in distress, speaks in sentences with no effort or accessory muscle use Head- atraumatic Eyes- PERRL, EOMI, anicteric ENT- oropharynx clear Neck- supple, no JVD, no adenopathy, no thyromegaly; carotids +2/2, no bruits appreciated Lungs- clear to auscultation bilaterally, no rales/wheezes Heart- normal rate, regular rhythm; no murmur, no gallop, no rub appreciated Abdomen- normal bowel sounds, nondistended, soft, nontender, no masses or hepatosplenomegaly Extremities- no pretibial edema, no calf tenderness; peripheral pulses intact Neuro- alert, oriented x 3; CN 2-12 grossly intact; motor 5/5 bilaterally;sensation 100% on all extremities; no other gross focal neurologic deficits Skin- warm & dry Results & Data Results & Data ([facility]) Vital Signs (Past 12 Hours) Vital Signs Temp Pulse Pulse Pulse Resp BP Pulse Ox 09/10/19 09:20 37.1 C 85 18 121/83 94 09/10/19 09:10 77 12 125/77 96 09/10/19 09:05 36.4 C L 88 19 129/93 93 09/10/19 08:55 87 18 130/83 95 09/10/19 08:47 37.0 C 84 16 181/88 H 96 09/10/19 04:00 36.6 C 77 18 141/87 H 96 09/10/19 01:19 73 09/10/19 00:06 36.9 C 66 18 115/57 L 94 09/09/19 22:28 77 18 143/91 H 95 Laboratory Results Laboratory Results - last 24 hr 09/09/19 09/09/19 09/09/19 19:15 19:40 19:40 WBC 6.68 RBC 5.66 H Hgb 15.5 POC Hgb Hct 44.5 POC Hct MCV 78.6 L MCH 27.4 MCHC 34.8 RDW Std Deviation 41.3 RDW Coeff of Rae 14.5 Plt Count 266 MPV 10.3 Immature Gran % (Auto) 0.1 Neut % (Auto) 62.5 Lymph % (Auto) 27.1 [place] % (Auto) 7.9 Eos % (Auto) 2.1 Baso % (Auto) 0.3 Immature Gran # (Auto) 0.01 Neut # (Auto) 4.17 Lymph # (Auto) 1.81 [place] # (Auto) 0.53 Eos # (Auto) 0.14 Baso # (Auto) 0.02 PT INR APTT PTT Ratio POC Sodium Sodium 137 POC Potassium Potassium 4.3 POC Chloride Chloride 104 Carbon Dioxide 23 POC Total CO2 Anion Gap 10.0 POC Anion Gap POC BUN BUN 12 Creatinine 1.07 POC Creatinine Est Cr Clr Drug Dosing 73.0 Est GFR ( Amer) 67.2 Est GFR (Non-Af Amer) 58.0 BUN/Creatinine Ratio 11.4 Glucose 133 H POC Glucose (other) Calcium 9.7 POC Ioniz Calcium [place] Total Bilirubin 3.8 H Direct Bilirubin AST 639 H ALT 617 H Alkaline Phosphatase 291 H Total Protein 8.7 H Albumin 3.7 Globulin 5.0 H Albumin/Globulin Ratio 0.7 L Lipase 55378 H Urine Color Dark Yellow Urine Appearance Clear Urine pH 5.5 Ur Specific [place] 1.026 Urine Protein 2+ H Urine Glucose (UA) Negative Urine Ketones Negative Urine Blood Negative Urine Nitrite Positive A Urine Bilirubin 3+ H Urine Urobilinogen Negative Ur Leukocyte Esterase 2+ H Urine WBC (Auto) 10-30 H Urine RBC (Auto) 0-4 U Hyaline Cast (Auto) 1-5 U Epithel Cells (Auto) 0-5 Urine Bacteria (Auto) Negative Granular Casts 1-5 H Urine Yeast Not Reportable 09/09/19 09/09/19 09/10/19 19:40 19:49 06:23 WBC 8.03 RBC 5.21 Hgb 14.0 POC Hgb 16.3 H Hct 41.7 POC Hct 48 H MCV 80.0 MCH 26.9 MCHC 33.6 RDW Std Deviation 43.8 RDW Coeff of Rae 15.0 H Plt Count 248 MPV 10.7 H Immature Gran % (Auto) Neut % (Auto) Lymph % (Auto) [place] % (Auto) Eos % (Auto) Baso % (Auto) Immature Gran # (Auto) Neut # (Auto) Lymph # (Auto) [place] # (Auto) Eos # (Auto) Baso # (Auto) PT 10.0 INR 0.9 APTT 21.0 PTT Ratio 0.8 POC Sodium 138 Sodium POC Potassium 4.4 Potassium POC Chloride 105 Chloride Carbon Dioxide POC Total CO2 22 L Anion Gap POC Anion Gap 17.0 POC BUN 13 BUN Creatinine POC Creatinine 0.9 Est Cr Clr Drug Dosing Est GFR ( Amer) Est GFR (Non-Af Amer) BUN/Creatinine Ratio Glucose POC Glucose (other) 135 H Calcium POC Ioniz Calcium [place] 1.12 Total Bilirubin Direct Bilirubin AST ALT Alkaline Phosphatase Total Protein Albumin Globulin Albumin/Globulin Ratio Lipase Urine Color Urine Appearance Urine pH Ur Specific [place] Urine Protein Urine Glucose (UA) Urine Ketones Urine Blood Urine Nitrite Urine Bilirubin Urine Urobilinogen Ur Leukocyte Esterase Urine WBC (Auto) Urine RBC (Auto) U Hyaline Cast (Auto) U Epithel Cells (Auto) Urine Bacteria (Auto) Granular Casts Urine Yeast 09/10/19 06:23 WBC RBC Hgb POC Hgb Hct POC Hct MCV MCH MCHC RDW Std Deviation RDW Coeff of Rae Plt Count MPV Immature Gran % (Auto) Neut % (Auto) Lymph % (Auto) [place] % (Auto) Eos % (Auto) Baso % (Auto) Immature Gran # (Auto) Neut # (Auto) Lymph # (Auto) [place] # (Auto) Eos # (Auto) Baso # (Auto) PT INR APTT PTT Ratio POC Sodium Sodium 141 POC Potassium Potassium 3.8 POC Chloride Chloride 108 H Carbon Dioxide 25 POC Total CO2 Anion Gap 8.0 POC Anion Gap POC BUN BUN 9 Creatinine 1.01 POC Creatinine Est Cr Clr Drug Dosing 77.6 Est GFR ( Amer) 72.1 Est GFR (Non-Af Amer) 62.2 BUN/Creatinine Ratio 8.9 L Glucose 127 H POC Glucose (other) Calcium 8.7 POC Ioniz Calcium [place] Total Bilirubin 2.5 H Direct Bilirubin 1.6 H AST 402 H ALT 499 H Alkaline Phosphatase 243 H Total Protein 7.4 Albumin 3.1 L Globulin 4.3 H Albumin/Globulin Ratio 0.7 L Lipase 6848 H Urine Color Urine Appearance Urine pH Ur Specific [place] Urine Protein Urine Glucose (UA) Urine Ketones Urine Blood Urine Nitrite Urine Bilirubin Urine Urobilinogen Ur Leukocyte Esterase Urine WBC (Auto) Urine RBC (Auto) U Hyaline Cast (Auto) U Epithel Cells (Auto) Urine Bacteria (Auto) Granular Casts Urine Yeast (1) Acute pancreatitis Acute pancreatitis complication: no infection or necrosis Pancreatitis type: unspecified pancreatitis type Qualified Code(s): K85.90 - Acute pancreatitis without necrosis or infection, unspecified
--- NOTE | 2019-09-10 12:13 | Surgery Consultation ---
Date of Consultation September 10, 2019 Assessment & Plan (1) Acute pancreatitis: Acute gallstone pancreatitis with retained cbd stone now s/p ercp/ stent placement/ stone removal. Lipase is slowly improving as are remaining lft's. Discussed laparoscopic cholecystectomy once labs improve - risks of bleeding, infection, conversion to open (depending on intra-abdominal adhesions), diarrhea, bile leak all reviewed. Will follow and schedule based on her overall clinical condition. Present on Admission?: Yes History of Present Illness Reason for Consultation: gallstones Requesting Physician: Aristides Juarez MD Attending Physician: Aristides Juarez MD History of Present Illness 54 yr old woman with history of subtotal colectomy/ anastamosis for ulcerative colitis and in 2003, lysis of adhesions for SBO now with acute gallstone pancreatitis s/p ercp/ stent/ stone removal earlier today. She has known about her gallstones for many years with intermittent episodes of discomfort. For the last several weeks, has noted intermittent upper abdominal pain which started to become worse and more constant this last week. Moderate to intense in severity, radiated to back, sharp at times, throbbing at others. Started to be aggravated by eating (mashed potatoes made it worse), started to note nausea. Has chronic loose stools. No vomiting. Allergies Allergy/AdvReac Type Severity Reaction Status Date / Time mercaptopurine Allergy Unknown Unknown Verified 09/09/19 20:38 Home Medications Home Medications Medication Instructions Recorded Confirmed Type multivitamin 1 tab PO DAILY 09/09/19 09/09/19 History Patient History Medical History Abdominal adhesions Ulcerative colitis s/p colectomy in 1999 at [facility] Surgical History History of colectomy Family History Mother Diabetes Father Coronary heart disease Social History Preferred Language: Sammarinese Communication Ability: Effective Beliefs That Will Affect Care: None Current Living Situation: Spouse Current Living Situation Comment: lives with Other Information That Helps Us Care for You: No Feels Safe at Home: Yes Safety Concerns: Feels Safe At This Time Smoking Status: Never smoker Hx Alcohol Use: No Hx Substance Use: No Review of Systems Review of Systems: All systems reviewed & are unremarkable except as noted in HPI & below Physical Exam Constitutional: WD/WN, vitals as above Neck: normal visual inspection Respiratory: normal respiratory effort, lungs clear to auscultation Cardiovascular: RRR, no murmur, no edema Gastrointestinal (Abdomen): Inspection/Auscultation: abdomen normal to inspection, + abdomen distended (mild) and normal bowel sounds Percussion/Palpation: + abdomen tender (epigastric) and abdomen soft; no guarding well healed midline incision Neurologic: moves all extremities; no focal motor deficits Psychiatric: Orientation: alert and oriented x 3 Results & Data Vital Signs (Past 12 Hours) Vital Signs Temp Pulse Pulse Pulse Resp BP Pulse Ox 09/10/19 11:00 37.0 C 88 20 137/89 92 09/10/19 09:20 37.1 C 85 18 121/83 94 09/10/19 09:10 77 12 125/77 96 09/10/19 09:05 36.4 C L 88 19 129/93 93 09/10/19 08:55 87 18 130/83 95 09/10/19 08:47 37.0 C 84 16 181/88 H 96 09/10/19 04:00 36.6 C 77 18 141/87 H 96 09/10/19 01:19 73 Laboratory Results 09/10/19 09/10/19 09/09/19 Range/Units 06:23 06:23 19:49 WBC 8.03 (4.8-10.8) K/uL RBC 5.21 (4.2-5.4) M/uL Hgb 14.0 (12.0-16.0) g/dL POC Hgb 16.3 H (12.0-16.0) g/dl Hct 41.7 (37-47) % POC Hct 48 H (37-47) % MCV 80.0 (80-100) fL MCH 26.9 (25-34) pg MCHC 33.6 (32-36) g/dL RDW Std Deviation 43.8 (36.4-46.3) fL RDW Coeff of Rae 15.0 H (11.5-14.5) % Plt Count 248 (130-400) K/uL MPV 10.7 H (7.4-10.4) fL Immature Gran % (Auto) % Neut % (Auto) % Lymph % (Auto) % Simpson % (Auto) % Eos % (Auto) % Baso % (Auto) % Immature Gran # (Auto) (0.00-0.02) K/uL Neut # (Auto) (1.4-6.5) K/uL Lymph # (Auto) (1.2-3.4) K/uL Simpson # (Auto) (0.11-0.59) K/uL Eos # (Auto) (0-0.5) K/uL Baso # (Auto) (0-0.2) K/uL PT (9.0-12.0) Seconds INR (0.9-1.1) APTT (21.0-31.0) Seconds PTT Ratio POC Sodium 138 (135-144) mmol/L Sodium 141 (136-145) mmol/L POC Potassium 4.4 (3.3-5.0) mmol/L Potassium 3.8 (3.5-5.1) mmol/L POC Chloride 105 (101-112) mmol/L Chloride 108 H (98-107) mmol/L Carbon Dioxide 25 (21-32) mmol/L POC Total CO2 22 L (24-31) mmol/L Anion Gap 8.0 (3-11) POC Anion Gap 17.0 (16-25) mmol/L POC BUN 13 (7-18) mg/dl BUN 9 (7-18) mg/dl Creatinine 1.01 (0.6-1.2) mg/dl POC Creatinine 0.9 (0.6-1.3) mg/dl Est Cr Clr Drug Dosing 77.6 ml/min Est GFR ( Amer) 72.1 Est GFR (Non-Af Amer) 62.2 BUN/Creatinine Ratio 8.9 L (10-20) Glucose 127 H (70-99) mg/dl POC Glucose (other) 135 H (70-99) mg/dl Calcium 8.7 (8.5-10.1) mg/dl POC Ioniz Calcium [place]lier 1.12 (1.12-1.32) mmol/l Total Bilirubin 2.5 H (0.2-1) mg/dl Direct Bilirubin 1.6 H (0-0.2) mg/dl AST 402 H (15-37) U/L ALT 499 H (12-78) U/L Alkaline Phosphatase 243 H (45-117) U/L Total Protein 7.4 (6.4-8.2) gm/dl Albumin 3.1 L (3.4-5.0) gm/dl Globulin 4.3 H (2.5-4.0) gm/dl Albumin/Globulin Ratio 0.7 L (0.9-2) Lipase 6848 H (73-393) U/L Urine Color Urine Appearance (Clear) Urine pH (4.5-7.5) Ur Specific [place] (1.000-1.030) Urine Protein (Negative) Urine Glucose (UA) (Negative) Urine Ketones (Negative) Urine Blood (Negative) Urine Nitrite (Negative) Urine Bilirubin (Negative) Urine Urobilinogen (Negative) Ur Leukocyte Esterase (Negative) Urine WBC (Auto) (0-5) /hpf Urine RBC (Auto) (0-4) /hpf U Hyaline Cast (Auto) (0-5) /lpf U Epithel Cells (Auto) (0-5) /lpf Urine Bacteria (Auto) (Negative) Granular Casts (0) /lpf Urine Yeast 09/09/19 09/09/19 09/09/19 Range/Units 19:40 19:40 19:40 WBC 6.68 (4.8-10.8) K/uL RBC 5.66 H (4.2-5.4) M/uL Hgb 15.5 (12.0-16.0) g/dL POC Hgb (12.0-16.0) g/dl Hct 44.5 (37-47) % POC Hct (37-47) % MCV 78.6 L (80-100) fL MCH 27.4 (25-34) pg MCHC 34.8 (32-36) g/dL RDW Std Deviation 41.3 (36.4-46.3) fL RDW Coeff of Rae 14.5 (11.5-14.5) % Plt Count 266 (130-400) K/uL MPV 10.3 (7.4-10.4) fL Immature Gran % (Auto) 0.1 % Neut % (Auto) 62.5 % Lymph % (Auto) 27.1 % Simpson % (Auto) 7.9 % Eos % (Auto) 2.1 % Baso % (Auto) 0.3 % Immature Gran # (Auto) 0.01 (0.00-0.02) K/uL Neut # (Auto) 4.17 (1.4-6.5) K/uL Lymph # (Auto) 1.81 (1.2-3.4) K/uL Simpson # (Auto) 0.53 (0.11-0.59) K/uL Eos # (Auto) 0.14 (0-0.5) K/uL Baso # (Auto) 0.02 (0-0.2) K/uL PT 10.0 (9.0-12.0) Seconds INR 0.9 (0.9-1.1) APTT 21.0 (21.0-31.0) Seconds PTT Ratio 0.8 POC Sodium (135-144) mmol/L Sodium 137 (136-145) mmol/L POC Potassium (3.3-5.0) mmol/L Potassium 4.3 (3.5-5.1) mmol/L POC Chloride (101-112) mmol/L Chloride 104 (98-107) mmol/L Carbon Dioxide 23 (21-32) mmol/L POC Total CO2 (24-31) mmol/L Anion Gap 10.0 (3-11) POC Anion Gap (16-25) mmol/L POC BUN (7-18) mg/dl BUN 12 (7-18) mg/dl Creatinine 1.07 (0.6-1.2) mg/dl POC Creatinine (0.6-1.3) mg/dl Est Cr Clr Drug Dosing 73.0 ml/min Est GFR ( Amer) 67.2 Est GFR (Non-Af Amer) 58.0 BUN/Creatinine Ratio 11.4 (10-20) Glucose 133 H (70-99) mg/dl POC Glucose (other) (70-99) mg/dl Calcium 9.7 (8.5-10.1) mg/dl POC Ioniz Calcium [place] (1.12-1.32) mmol/l Total Bilirubin 3.8 H (0.2-1) mg/dl Direct Bilirubin (0-0.2) mg/dl AST 639 H (15-37) U/L ALT 617 H (12-78) U/L Alkaline Phosphatase 291 H (45-117) U/L Total Protein 8.7 H (6.4-8.2) gm/dl Albumin 3.7 (3.4-5.0) gm/dl Globulin 5.0 H (2.5-4.0) gm/dl Albumin/Globulin Ratio 0.7 L (0.9-2) Lipase 08381 H (73-393) U/L Urine Color Urine Appearance (Clear) Urine pH (4.5-7.5) Ur Specific [place] (1.000-1.030) Urine Protein (Negative) Urine Glucose (UA) (Negative) Urine Ketones (Negative) Urine Blood (Negative) Urine Nitrite (Negative) Urine Bilirubin (Negative) Urine Urobilinogen (Negative) Ur Leukocyte Esterase (Negative) Urine WBC (Auto) (0-5) /hpf Urine RBC (Auto) (0-4) /hpf U Hyaline Cast (Auto) (0-5) /lpf U Epithel Cells (Auto) (0-5) /lpf Urine Bacteria (Auto) (Negative) Granular Casts (0) /lpf Urine Yeast 09/09/19 Range/Units 19:15 WBC (4.8-10.8) K/uL RBC (4.2-5.4) M/uL Hgb (12.0-16.0) g/dL POC Hgb (12.0-16.0) g/dl Hct (37-47) % POC Hct (37-47) % MCV (80-100) fL MCH (25-34) pg MCHC (32-36) g/dL RDW Std Deviation (36.4-46.3) fL RDW Coeff of Rae (11.5-14.5) % Plt Count (130-400) K/uL MPV (7.4-10.4) fL Immature Gran % (Auto) % Neut % (Auto) % Lymph % (Auto) % Simpson % (Auto) % Eos % (Auto) % Baso % (Auto) % Immature Gran # (Auto) (0.00-0.02) K/uL Neut # (Auto) (1.4-6.5) K/uL Lymph # (Auto) (1.2-3.4) K/uL Simpson # (Auto) (0.11-0.59) K/uL Eos # (Auto) (0-0.5) K/uL Baso # (Auto) (0-0.2) K/uL PT (9.0-12.0) Seconds INR (0.9-1.1) APTT (21.0-31.0) Seconds PTT Ratio POC Sodium (135-144) mmol/L Sodium (136-145) mmol/L POC Potassium (3.3-5.0) mmol/L Potassium (3.5-5.1) mmol/L POC Chloride (101-112) mmol/L Chloride (98-107) mmol/L Carbon Dioxide (21-32) mmol/L POC Total CO2 (24-31) mmol/L Anion Gap (3-11) POC Anion Gap (16-25) mmol/L POC BUN (7-18) mg/dl BUN (7-18) mg/dl Creatinine (0.6-1.2) mg/dl POC Creatinine (0.6-1.3) mg/dl Est Cr Clr Drug Dosing ml/min Est GFR ( Amer) Est GFR (Non-Af Amer) BUN/Creatinine Ratio (10-20) Glucose (70-99) mg/dl POC Glucose (other) (70-99) mg/dl Calcium (8.5-10.1) mg/dl POC Ioniz Calcium [place] (1.12-1.32) mmol/l Total Bilirubin (0.2-1) mg/dl Direct Bilirubin (0-0.2) mg/dl AST (15-37) U/L ALT (12-78) U/L Alkaline Phosphatase (45-117) U/L Total Protein (6.4-8.2) gm/dl Albumin (3.4-5.0) gm/dl Globulin (2.5-4.0) gm/dl Albumin/Globulin Ratio (0.9-2) Lipase (73-393) U/L Urine Color Dark Yellow Urine Appearance Clear (Clear) Urine pH 5.5 (4.5-7.5) Ur Specific [place] 1.026 (1.000-1.030) Urine Protein 2+ H (Negative) Urine Glucose (UA) Negative (Negative) Urine Ketones Negative (Negative) Urine Blood Negative (Negative) Urine Nitrite Positive A (Negative) Urine Bilirubin 3+ H (Negative) Urine Urobilinogen Negative (Negative) Ur Leukocyte Esterase 2+ H (Negative) Urine WBC (Auto) 10-30 H (0-5) /hpf Urine RBC (Auto) 0-4 (0-4) /hpf U Hyaline Cast (Auto) 1-5 (0-5) /lpf U Epithel Cells (Auto) 0-5 (0-5) /lpf Urine Bacteria (Auto) Negative (Negative) Granular Casts 1-5 H (0) /lpf Urine Yeast Not Reportable Diagnostic Findings MRCP 09/08 FINDINGS: Small gallstones are noted in the fundal region, best seen on the axial series. The gallbladder is otherwise normal in appearance. There is no intra or extrahepatic biliary ductal dilatation. The common bile duct measures up to 5 mm in diameter. There is a small filling defect within the distal common bile duct seen on coronal high-resolution MRCP image #91. This is suspicious for choledocholithiasis. The pancreatic duct is normal in caliber. The liver is enlarged, measuring 19 cm in length. There is evidence of steatosis. The unenhanced liver is otherwise grossly unremarkable. The unenhanced spleen, adrenal glands, and kidneys are grossly normal. Minimal stranding and trace fluid is seen adjacent the pancreatic head. This is consistent with the reported history of acute pancreatitis. The pancreas is otherwise normal in appearance. No organized peripancreatic fluid collection is identified. The abdominal aorta is normal in caliber. There is no bowel obstruction. The bony structures demonstrate normal marrow signal intensity. IMPRESSION: 1. Findings of mild acute pancreatitis are again seen adjacent the pancreatic tail. 2. Cholelithiasis without evidence of acute cholecystitis. 3. There is no intra or extrahepatic biliary ductal dilatation. 4. Suspect choledocholithiasis with a small stone in the distal common duct near the pancreatic head. 5. Hepatomegaly and hepatic steatosis. CT abd/ pelvis 09/09/19 Findings: Lung bases: The heart is normal in size and without pericardial effusion. The lung bases are clear noting dependent atelectasis. Liver: The contrast-enhanced liver is enlarged, measuring 20.3 cm in length. The liver demonstrates diffusely diminished attenuation consistent with hepatic steatosis. There is no intrahepatic biliary ductal dilatation. The hepatic veins and portal veins are patent. Gallbladder: There are calcified gallstones with no CT evidence of acute cholecystitis. Spleen: Normal in size and attenuation. Pancreas: Mild stranding and fluid is suggested in the pancreatic tail. No organized Fluid collection is seen. The pancreas enhances homogeneously. Adrenal glands: Unremarkable. Kidneys: The contrast enhanced kidneys are normal in size and without hydronephrosis. The kidneys enhance symmetrically. Abdominal vasculature: The abdominal aorta is normal in course and caliber. Bowel: Postoperative change is consistent with lower anterior resection and subtotal colectomy with anastomosis. A small bowel anastomosis is seen in the right lower quadrant. There is evidence of active colic anastomosis A periumbilical hernia contains nonobstructed loops of small bowel. No bowel obstruction is identified. Peritoneum: There is no intraperitoneal free air or abdominal ascites. There are 2 umbilical hernias, one of which contains small bowel loops. Lymphadenopathy: None. Pelvic viscera: The bladder, uterus, and adnexa are normal as imaged. Skeletal structures: The skeletal structures are osteopenic. There is mild lumbosacral spondylosis. Sclerotic change is noted in the sacroiliac joints. No lytic or blastic lesions are seen. IMPRESSION: 1. Findings suggest mild acute pancreatitis. Correlation with clinical findings and serum amylase/lipase levels will be required. 2. Hepatomegaly and hepatic steatosis. 3. Cholelithiasis. 4. There is postoperative change from subtotal colectomy and bowel anastomoses. No bowel obstruction is identified. 5. A periumbilical hernia contains nonobstructed small bowel loops. 6. Additional findings as above. (1) Acute pancreatitis Acute pancreatitis complication: no infection or necrosis Pancreatitis type: unspecified pancreatitis type Qualified Code(s): K85.90 - Acute pancreatitis without necrosis or infection, unspecified
[2019-09-11] MEDS: PIPERACILLIN/TAZOBACTAM 4.5 GM in DEXTROSE 5% 100 ML IV SCH ×3 (04:59→23:40)
[2019-09-11] MEDS: LACTATED RINGER'S 1,000 ML IV SCH ×2 (06:01→12:40)
[2019-09-11] MEDS: HYDROmorphone INJ 0.5 MG/0.5 ML SYR IV PRN ×3 (07:26→23:40)
--- NOTE | 2019-09-11 09:30 | Gastroenterology Progress Note ---
Date of Service September 11, 2019 Assessment & Plan (1) Acute pancreatitis: Patient admitted with gallstone pancreatitis status post ERCP with biliary and pancreatic stent placement. She appears to be much improved today. Taken the liberty of ordering this morning's labs and would suggest that a.m. labs to be drawn by the internal medicine service tomorrow. Even her improvement I would suggest advancing her to a liquid diet today and then as tolerated on Thursday. Recomendations Labs ordered this morning to include CBC, CMP and lipase May have a clear liquid diet today and then advance as tolerated pleasse call with any questions or concerns Repeat outpatient ERCP in 6 to 8 weeks Cholecystectomy per general surgery Admission and Anticipated Discharge Date Admission Date: September 09, 2019 Subjective The patient reports feeling much improved this morning. She underwent urgent ERCP for gallstone pancreatitis yesterday morning. Unfortunately there are no labs to review at this morning Review of Systems Constitutional: no sweats and no malaise Respiratory: no change in sputum and no hemoptysis Cardiovascular: no chest pain with activity and no dyspnea at rest Gastrointestinal: no bloating and no nausea Physical Exam Constitutional: WD/WN, vitals as above Neck: trachea midline, no thyromegaly Respiratory: normal respiratory effort, lungs clear to auscultation Cardiovascular: Rate/Rhythm: regular rhythm Gastrointestinal (Abdomen): Percussion/Palpation: abdomen soft; abdomen nontender and no guarding Results & Data ([facility]) Vital Signs (Past 12 Hours) Vital Signs Temp Pulse Pulse Resp BP Pulse Ox 09/11/19 07:25 36.4 C L 81 18 137/82 96 09/11/19 03:22 36.6 C 69 18 127/80 96 09/11/19 01:09 71 09/10/19 23:58 36.7 C 76 19 150/85 H 95 (1) Acute pancreatitis Acute pancreatitis complication: no infection or necrosis Pancreatitis type: unspecified pancreatitis type Qualified Code(s): K85.90 - Acute pancreatitis without necrosis or infection, unspecified
[2019-09-11 09:52] LABS: Basophils # (auto) 0.01 K/uL (0-0.2); Basophils % (auto) 0.1 %; Eosinophils # (auto) 0.06 K/uL (0-0.5); Eosinophils % (auto) 0.7 %; Hematocrit (blood only) 41.8 % (37-47); Hemoglobin 13.9 g/dL (12.0-16.0); Immature Granulocytes # (auto) 0.02 K/uL (0.00-0.02); Immature Granulocytes % (auto) 0.2 %; Lymphocytes # (auto) 2.16 K/uL (1.2-3.4); Lymphocytes % (auto) 24.4 %; Mean Corpuscular Hemoglobin 26.8 pg (25-34); Mean Corpuscular Hgb Conc 33.3 g/dL (32-36); Mean Corpuscular Volume 80.7 fL (80-100); Mean Platelet Volume 10.2 fL (7.4-10.4); Monocytes # (auto) 0.88 K/uL (0.11-0.59); Neutrophils # (auto) 5.71 K/uL (1.4-6.5); Neutrophils % (auto) 64.6 %; Platelet Count 236 K/uL (130-400); RDW Standard Deviation 43.9 fL (36.4-46.3); Red Blood Count 5.18 M/uL (4.2-5.4); White Blood Count 8.84 K/uL (4.8-10.8)
[2019-09-11 10:22] LABS: BUN Creatinine Ratio 10.3 (10-20); Calcium 9.3 mg/dl (8.5-10.1); Creatinine Clr Calc Pharmacy 73.9 ml/min; Est GFR (Non-African American) 58.7; Potassium 3.4 mmol/L (3.5-5.1)
[2019-09-11 10:29] LABS: Albumin Globulin Ratio 0.7 (0.9-2); Bilirubin,Total 1.2 mg/dl (0.2-1); Globulin 4.5 gm/dl (2.5-4.0); Total Protein 7.5 gm/dl (6.4-8.2)
--- NOTE | 2019-09-11 11:26 | Surgery Progress Note ---
Date of Service September 11, 2019 Assessment & Plan (1) Acute pancreatitis: Acute gallstone pancreatitis with retained cbd stone now s/p ercp/ stent placement/ stone removal. Lipase is slowly improving as are remaining lft's - lipase significantly closer to normal. Given resolution of symptoms and improved labs, reasonable to proceed with lap cholecystectomy today. Risks of bleeding, infection, conversion to open, postop bile leak, need for drain, injury to other structures all discussed. Consent signed. for OR today. Subjective Feeling much better. Pain almost resolved. Review of Systems Review of Systems: All systems reviewed & are unremarkable except as noted in HPI & below Physical Exam Constitutional: WD/WN, vitals as above Neck: normal visual inspection Respiratory: normal respiratory effort, lungs clear to auscultation Cardiovascular: RRR, no murmur, no edema Gastrointestinal (Abdomen): Inspection/Auscultation: abdomen normal to inspection and normal bowel sounds; abdomen not distended Percussion/Palpation: abdomen soft; abdomen nontender and no guarding Neurologic: moves all extremities; no focal motor deficits Psychiatric: Orientation: alert and oriented x 3 Results & Data Vital Signs (Past 12 Hours) Vital Signs Temp Pulse Pulse Resp BP Pulse Ox 09/11/19 07:25 36.4 C L 81 18 137/82 96 09/11/19 03:22 36.6 C 69 18 127/80 96 09/11/19 01:09 71 09/10/19 23:58 36.7 C 76 19 150/85 H 95 Laboratory Results Abnormal lab results 09/11/19 09/11/19 Range/Units 09:38 09:38 RDW Coeff of Rae 15.0 H (11.5-14.5) % [place] # (Auto) 0.88 H (0.11-0.59) K/uL Potassium 3.4 L (3.5-5.1) mmol/L Glucose 119 H (70-99) mg/dl Total Bilirubin 1.2 H D (0.2-1) mg/dl AST 151 H (15-37) U/L ALT 328 H (12-78) U/L Alkaline Phosphatase 198 H (45-117) U/L Albumin 3.0 L (3.4-5.0) gm/dl Globulin 4.5 H (2.5-4.0) gm/dl Albumin/Globulin Ratio 0.7 L (0.9-2) Lipase 623 H (73-393) U/L (1) Acute pancreatitis Acute pancreatitis complication: no infection or necrosis Pancreatitis type: unspecified pancreatitis type Qualified Code(s): K85.90 - Acute pancreatitis without necrosis or infection, unspecified
--- NOTE | 2019-09-11 14:05 | Anesthesiology Consultation ---
Date of Service September 11, 2019 Assessment & Plan ASA ASA2 Proposed Anesthesia Anesthesia Type: General Risk / Benefits Reviewed With: PT / POA / Parent / Guardian, Accepts Plan and Informed Consent Obtained History Surgery Operation Date: 09/10/19 07:30 Proposed Procedures p Endoscopic Retrograde Cholangiopancreato - Shala Dale Operation Date: 09/11/19 14:00 Proposed Procedures p Laparoscopic Cholecystectomy - Lisa Dale MD Height/Weight Height: 5 ft 4 in Weight: 115.4 kg Allergies Allergy/AdvReac Type Severity Reaction Status Date / Time mercaptopurine Allergy Unknown Unknown Verified 09/09/19 20:38 Medications Home Medications Medication Instructions Recorded Confirmed Last Taken multivitamin 1 tab PO DAILY 09/09/19 09/09/19 Unknown Active Medications Generic Name Dose Route Start Last Admin Trade Name Freq PRN Reason Stop Dose Admin Hydromorphone HCl 0.5 mg 09/09/19 22:46 09/11/19 07:26 Dilaudid IV 09/23/19 22:45 0.5 mg Q4H PRN Administration Severe Pain Lactated Ringer's 1,000 mls @ 150 mls/hr 09/09/19 22:46 09/11/19 12:40 Lr IV 10/09/19 22:45 150 mls/hr .[id number] ROGELIO Administration Piperacillin Sod/Tazobactam 120 mls @ 30 mls/hr 09/10/19 04:00 09/11/19 12:04 Sod 4.5 gm/ Dextrose IV 09/20/19 03:59 30 mls/hr Q8H ROGELIO Administration Protocol Ondansetron HCl 4 mg 09/09/19 22:46 09/10/19 10:14 Zofran IV 10/09/19 22:45 4 mg Q6H PRN Administration Nausea NPO Date Last Intake of Fluids: 09/10/19 Time Last Intake of Fluids: 00:00 Date Last Intake of Solids: 09/10/19 Time Last Intake of Solids: 00:00 Past Medical History Medical History Abdominal adhesions Ulcerative colitis s/p colectomy in 1999 at [facility] [place] Exercise / Class Metabolic Activity II 4-5 Yardwork/Stairs/Walk up hill Past Family History Family History Mother Diabetes Father Coronary heart disease Past Surgical History Surgical History History of colectomy Past Anesthesia History No Hx of Anesthesia Complications and No Family Hx of Anesthesia Complications History of PONV No Hx of PONV and No Hx of Motion Sickness Social History Smoking Status: Never smoker Hx Alcohol Use: No Hx Substance Use: No Review of Systems denies fever/cough/ colds/ chest pain/ SOB/ MILVIA Constitutional: no fever and no chills Respiratory: no cough and no dyspnea denies MILVIA Cardiovascular: no chest pain and no dyspnea on exertion Physical Exam Vital Signs Last Vital Signs Temp 36.8 C 09/11/19 11:32 Pulse 81 09/11/19 11:32 Resp 18 09/11/19 11:32 BP 147/90 H 09/11/19 11:32 Pulse Ox 97 09/11/19 11:32 ENMT Mouth: no TMJ abnormality and no dentition abnormality Thyromental Distance: > or= 3.5 Finger Breadths Mallampati Class: II Neck + short neck and + thick neck; neck extension not limited Respiratory normal respiratory effort; no respiratory distress Auscultation: lungs clear to auscultation bilaterally Cardiovascular Rate/Rhythm: regular rate and regular rhythm Neurologic moves all extremities Psychiatric Orientation: alert and oriented x 3 Testing Laboratory Results 09/11/19 09:38 09/11/19 09:38 PT 10.0 Seconds (9.0-12.0) 09/09/19 19:40 INR 0.9 (0.9-1.1) 09/09/19 19:40 APTT 21.0 Seconds (21.0-31.0) 09/09/19 19:40 Urine Color Dark Yellow 09/09/19 19:15 Urine Appearance Clear (Clear) 09/09/19 19:15 Urine pH 5.5 (4.5-7.5) 09/09/19 19:15 Ur Specific [place] 1.026 (1.000-1.030) 09/09/19 19:15 Urine Protein 2+ (Negative) H 09/09/19 19:15 Urine Glucose (UA) Negative (Negative) 09/09/19 19:15 Urine Ketones Negative (Negative) 09/09/19 19:15 Urine Nitrite Positive (Negative) A 09/09/19 19:15 Ur Leukocyte Esterase 2+ (Negative) H 09/09/19 19:15 Urine WBC (Auto) 10-30 /hpf (0-5) H 09/09/19 19:15 Urine RBC (Auto) 0-4 /hpf (0-4) 09/09/19 19:15 U Hyaline Cast (Auto) 1-5 /lpf (0-5) 09/09/19 19:15 U Epithel Cells (Auto) 0-5 /lpf (0-5) 09/09/19 19:15 Urine Bacteria (Auto) Negative (Negative) 09/09/19 19:15 09/09/19 19:15 Urine Culture - Final Urine,Clean Catch More than three types of organisms present, all low counts mixed probable skin leonides. No further identifications or sensitivities to follow.
[2019-09-11] MEDS ORDERED: fentaNYL citrate 100 MCG/2 ML VIAL ONE ×3 (14:07→15:59)
[2019-09-11] MEDS ORDERED: BUPIVACAINE 0.5 % 5 MG/1 ML MPF 30ML VIAL ONE (14:37)
[2019-09-11] MEDS ORDERED: PROPOFOL IV EMULSION 10 MG/ML 20 ML VIAL IV ONE ×2 (15:12→15:35)
[2019-09-11] MEDS ORDERED: ROCURONIUM BROMIDE 10 MG/ML 5 ML VIAL ONE (15:12)
[2019-09-11] MEDS ORDERED: GLYCOPYRROLATE 0.2 MG/ML VIAL ONE (15:12)
[2019-09-11] MEDS ORDERED: NEOSTIGMINE METHYLSULFATE 5 MG/5 ML SYR ONE (15:12)
[2019-09-11] MEDS ORDERED: ONDANSETRON INJ 2 MG/ML 2 ML VIAL ONE (15:12)
[2019-09-11] MEDS ORDERED: DEXAMETHASONE SOD INJ 4 MG/ML VIAL ONE (15:12)
[2019-09-11] MEDS ORDERED: SUCCINYLCHOLINE CHLORIDE 20 MG/ML 10 ML VIAL IV ONE (15:12)
[2019-09-11] MEDS ORDERED: LIDOCAINE HCL 2% 2 ML VIAL/AMP(20MG/ML) INFIL ONE (15:12)
--- NOTE | 2019-09-11 16:46 | Operative Report ---
Post Operative Report Pre & Post Diagnosis Operation Date: 09/10/19 07:30 Pre-Op Diagnosis: PANCREATITIS Post-Op Diagnosis: PANCREATITIS Operation Date: 09/11/19 14:00 Pre-Op Diagnosis: acute cholecystitis/ gallstone pancreatitis Post-Op Diagnosis: acute cholecystitis/ gallstone pancreatitis I identified the patient and participated in the time-out.: Yes Procedure Operation Date: 09/10/19 07:30 Actual Procedures p Endoscopic Retrograde Cholangiopancreato(Not Applicable) - Shala Dale Operation Date: 09/11/19 14:00 Actual Procedures p Laparoscopic Cholecystectomy(Not Applicable) - Lisa Dale MD Surgeon Lisa Dale MD Manager Book none Estimated Blood Loss 5 Findings Consistent with Post-Op Diagnosis Specimens gallbladder Description of Procedure see dictated operative note I attest to the content of the Intraoperative Record and any orders documented therein. Any exceptions are noted below.
[2019-09-11] MEDS ORDERED: ePHEDrine sulfate 50 MG/ML AMP IV PRN (17:15)
[2019-09-11] MEDS ORDERED: ONDANSETRON INJ 2 MG/ML 2 ML VIAL IV PRN (17:15)
[2019-09-11] MEDS ORDERED: ATROPINE SULFATE 0.1 MG/ML 10ML SYR IV PRN (17:15)
[2019-09-11] MEDS: HYDROmorphone INJ 2 MG/ML SYR/VIAL IV PRN ×3 (17:22→17:46)
[2019-09-11] MEDS: fentaNYL citrate 100 MCG/2 ML VIAL IV PRN ×2 (17:28→17:41)
--- NOTE | 2019-09-11 17:51 | Anesthesiology Progress Note ---
Date of Service September 11, 2019 Anesthesia Post Procedure Vital Signs Vital Signs: Temp Pulse Pulse Pulse Resp BP Pulse Ox 09/11/19 17:12 36.6 C 84 20 152/96 H 93 09/11/19 11:32 36.8 C 81 18 147/90 H 97 09/11/19 07:25 36.4 C L 81 18 137/82 96 09/11/19 03:22 36.6 C 69 18 127/80 96 09/11/19 01:09 71 09/10/19 23:58 36.7 C 76 19 150/85 H 95 09/10/19 19:00 36.8 C 72 18 108/67 97 Pain Intensity Abdomen: Pain Intensity: 10 Transfer of Care Handoff Completed per policy Notes Mental Status: alert / awake / arousable and participated in evaluation Patient Amnestic to Procedure: Yes Nausea / Vomiting: adequately controlled Pain: adequately controlled Airway Patency, RR, SpO2: stable & adequate BP & HR: stable & adequate Hydration State: stable & adequate Anesthetic Complications: no major complications apparent and Pt Satisfied with anesthetic care
[2019-09-11] MEDS ORDERED: OXYCODONE/ACETAMINOPHEN 5mg/325mg TAB PO PRN (18:18)
[2019-09-11] MEDS ORDERED: PROMETHAZINE HCL 12.5 MG in SODIUM CHLORIDE 0.9% 50 ML IV PRN (19:35)
--- NOTE | 2019-09-11 19:50 | Hospitalist Progress Note ---
Date of Service September 11, 2019 Assessment & Plan (1) Acute pancreatitis: (2) Transaminitis: Pancreatitis, likely secondary to gallstones Per admitting service notes Pt is 54 y/o F with PMH ulcerative colitis s/p colectomy in 1999, h/o abdominal adhesions presented to ER with c/o intermittent abdominal pain x several weeks with progressive worsening. +nausea without vomiting. Has chronic loose stools, denies any increase in amount of loose stools. Denies fever/chills, ETOH use In ER pt afebrile, P: 95, R: 18, BP: 185/103 down to SBP: 145 No leukocytosis, T Bili: 3.8, AST: 639, ALT: 617, Alk Phos: 291, Lipase: 24,617 CT ABD/PELVIS: Findings suggest mild acute pancreatitis. Hepatomegaly and hepatic steatosis. Cholelithiasis. There is postoperative change from subtotal colectomy and bowel anastomoses. No bowel obstruction is identified. periumbilical hernia contains nonobstructed small bowel loops. 09/11/2019 Lipase improved from 24,600 now 600s LFTs also improving Status post ERCP with removal of CBD stone and stent placement by Dr. Lenny Dale Plan for laparoscopic cholecystectomy Advance diet as tolerated Monitor closely (3) Ulcerative colitis: S/P colectomy in 1999 DVT Prophylaxis -SCDs Full Code as per discussion with pt Follows with Dr Arlene Ochoa in [place] for routine care Admission and Anticipated Discharge Date Admission Date: September 09, 2019 Subjective Follow-up for acute pancreatitis, cholelithiasis Seen resting in bed, comfortable, not in distress States epigastric pain is still present but improving Denies fevers or chills, shortness of breath, chest pain No BMs yet No other symptoms Review of Systems Review of Systems: All systems reviewed & are unremarkable except as noted in HPI & below Physical Exam Physical Exam: General- oriented x 3, not in distress, speaks in sentences with no effort or accessory muscle use Eyes- anicteric Neck- no JVD Lungs- clear BS bilaterally, no crackles or wheezing Heart- normal rate, regular rhythm; no murmurs Abdomen- normal bowel sounds, nondistended, soft, mild epigastric tenderness Extremities- no pretibial edema, no calf tenderness Neuro- alert, oriented x 3; no gross focal neurologic deficits Skin- warm & dry Results & Data Results & Data ([facility]) Vital Signs (Past 12 Hours) Vital Signs Temp Pulse Pulse Resp BP Pulse Ox 09/11/19 18:48 37.1 C 72 20 135/88 94 09/11/19 18:18 36.9 C 73 20 155/83 H 96 09/11/19 18:05 71 20 153/97 H 92 09/11/19 18:00 36.2 C L 74 20 142/91 H 93 09/11/19 17:50 68 20 136/92 92 09/11/19 17:40 81 20 159/92 H 91 09/11/19 17:30 75 16 157/98 H 96 09/11/19 17:20 78 20 182/89 H 95 09/11/19 17:12 36.6 C 84 20 152/96 H 93 09/11/19 11:32 36.8 C 81 18 147/90 H 97 Laboratory Results Laboratory Results - last 24 hr 09/11/19 09/11/19 09:38 09:38 WBC 8.84 RBC 5.18 Hgb 13.9 Hct 41.8 MCV 80.7 MCH 26.8 MCHC 33.3 RDW Std Deviation 43.9 RDW Coeff of Rae 15.0 H Plt Count 236 MPV 10.2 Immature Gran % (Auto) 0.2 Neut % (Auto) 64.6 Lymph % (Auto) 24.4 [place] % (Auto) 10.0 Eos % (Auto) 0.7 Baso % (Auto) 0.1 Immature Gran # (Auto) 0.02 Neut # (Auto) 5.71 Lymph # (Auto) 2.16 [place] # (Auto) 0.88 H Eos # (Auto) 0.06 Baso # (Auto) 0.01 Sodium 141 Potassium 3.4 L Chloride 107 Carbon Dioxide 25 Anion Gap 9.0 BUN 11 Creatinine 1.06 Est Cr Clr Drug Dosing 73.9 Est GFR ( Amer) 68.0 Est GFR (Non-Af Amer) 58.7 BUN/Creatinine Ratio 10.3 Glucose 119 H Calcium 9.3 Total Bilirubin 1.2 H D AST 151 H ALT 328 H Alkaline Phosphatase 198 H Total Protein 7.5 Albumin 3.0 L Globulin 4.5 H Albumin/Globulin Ratio 0.7 L Lipase 623 H (1) Acute pancreatitis Acute pancreatitis complication: no infection or necrosis Pancreatitis type: unspecified pancreatitis type Qualified Code(s): K85.90 - Acute pancreatitis without necrosis or infection, unspecified
--- NOTE | 2019-09-11 20:33 | Operative Report (OR) ---
DATE OF OPERATION: 09/11/2019 PREOPERATIVE DIAGNOSES: Gallstone pancreatitis/acute cholecystitis. POSTOPERATIVE DIAGNOSES: Gallstone pancreatitis/acute cholecystitis. OPERATIVE PROCEDURE: Laparoscopic cholecystectomy. SURGEON: Lisa Dale MD. RATTLE [employer] SQUEAK REPAIRER: None. ANESTHESIA: General endotracheal anesthesia. ESTIMATED BLOOD LOSS: 5 mL. INTRAVENOUS FLUIDS: 1200 mL. ASA: 3. SPECIMENS: Gallbladder. DRAINS: None. COMPLICATIONS: None. INDICATIONS: Ms. Ballard is a 54-year-old woman who presented with gallstone pancreatitis. She is status post ERCP and stent placement. As her lipase was normalizing and her symptoms had improved, we discussed laparoscopic cholecystectomy. DESCRIPTION OF PROCEDURE: The patient received Zosyn preoperatively. After the induction of general endotracheal anesthesia, she had placement of sequential compression devices. Her abdomen was sterilely prepped and draped. Due to her prior midline incision from her colectomy for ulcerative colitis, a decision was made to enter the abdomen in an open fashion in the right upper quadrant. A right upper quadrant incision was made and carried down to the fascia. 0 Vicryl stay sutures were placed. The peritoneum was grasped and sharply entered. A Ursula trocar was placed. Initial pressure was 5 mmHg and this was taken up to 15 mmHg. A camera was then placed. There were adhesions to the midline incision extending all the way up to and above the umbilicus. A 5 mm trocar was placed just to the right side of the midline incision in an area clear of adhesions. This was done under direct vision. Two additional trocars were then placed, a 5 mm in the midline epigastric area and a 5 mm in the right upper quadrant. Initial inspection revealed a very large liver. The gallbladder was actually located near the right anterior axillary line of the abdominal wall. A fifth 5 mm trocar was placed with a fan retractor to lift the liver out of the way to allow the gallbladder to be seen and the gallbladder was extremely contracted. The dissection was begun at the triangle of Calot and the gallbladder was triangulated on the cystic duct. The cystic duct was seen with critical views anteriorly and posteriorly. This was doubly clipped on the remaining side, singly clipped on the gallbladder side and divided. A 5 mm clip drum cleaner was used. The cystic artery was similarly clipped and divided. The gallbladder was then dissected off the liver bed without difficulty. There was no spillage of stones. This was then placed in an Endocatch and removed through the Ursula trocar incision. The abdomen was irrigated and suctioned clear. The trocars were removed. The 30 mL of 0.5% Marcaine had been used for local anesthesia throughout the procedure. The fascia of the larger trocar site was closed with 0 Vicryl stitches placed anteriorly. The skin of all 5 incisions closed with running subcuticular 4-0 Vicryl sutures. Steri-Strip and sterile dressings were applied. She was awakened and taken to recovery in stable condition. I attest to the content of the Intraoperative Record and any orders documented therein. Any exception s are noted below.
[2019-09-11] MEDS: OXYCODONE/ACETAMINOPHEN 5mg/325mg TAB PO PRN (20:38)
[2019-09-12] MEDS: LACTATED RINGER'S 1,000 ML IV SCH (03:12)
[2019-09-12] MEDS: HYDROmorphone INJ 0.5 MG/0.5 ML SYR IV PRN ×3 (03:51→15:49)
[2019-09-12 07:02] LABS: Basophils # (auto) 0.01 K/uL (0-0.2); Basophils % (auto) 0.1 %; Eosinophils # (auto) 0.03 K/uL (0-0.5); Eosinophils % (auto) 0.3 %; Hematocrit (blood only) 38.4 % (37-47); Hemoglobin 12.7 g/dL (12.0-16.0); Immature Granulocytes # (auto) 0.02 K/uL (0.00-0.02); Immature Granulocytes % (auto) 0.2 %; Lymphocytes # (auto) 2.21 K/uL (1.2-3.4); Lymphocytes % (auto) 23.9 %; Mean Corpuscular Hemoglobin 27.2 pg (25-34); Mean Corpuscular Hgb Conc 33.1 g/dL (32-36); Mean Corpuscular Volume 82.2 fL (80-100); Mean Platelet Volume 10.4 fL (7.4-10.4); Monocytes # (auto) 0.91 K/uL (0.11-0.59); Monocytes % (auto) 9.8 %; Neutrophils # (auto) 6.06 K/uL (1.4-6.5); Neutrophils % (auto) 65.7 %; Platelet Count 262 K/uL (130-400); RDW Coefficient of Variation 15.7 % (11.5-14.5); Red Blood Count 4.67 M/uL (4.2-5.4); White Blood Count 9.24 K/uL (4.8-10.8)
[2019-09-12 07:39] LABS: Albumin Level 2.7 gm/dl (3.4-5.0); BUN Creatinine Ratio 9.4 (10-20); Bilirubin,Total 0.8 mg/dl (0.2-1); Calcium 8.4 mg/dl (8.5-10.1); Creatinine Clr Calc Pharmacy 74.2 ml/min; Est GFR (African American) 67.2; Potassium 4.1 mmol/L (3.5-5.1); Total Protein 7.1 gm/dl (6.4-8.2)
[2019-09-12 07:43] LABS: Bilirubin Direct 0.4 mg/dl (0-0.2)
[2019-09-12] MEDS: PIPERACILLIN/TAZOBACTAM 4.5 GM in DEXTROSE 5% 100 ML IV SCH ×2 (07:43→15:56)
--- NOTE | 2019-09-12 11:36 | Surgery Progress Note ---
Date of Service doing fine, no nausea, no vomiting, no fever, tolerated diet, September 12, 2019 Assessment & Plan (1) Acute pancreatitis: Acute gallstone pancreatitis with retained cbd stone now s/p ercp/ stent placement/ stone removal. Lipase is slowly improving as are remaining lft's - lipase significantly closer to normal. Given resolution of symptoms and improved labs, reasonable to proceed with lap cholecystectomy today. Risks of bleeding, infection, conversion to open, postop bile leak, need for drain, injury to other structures all discussed. Consent signed. for OR today. 09/12/2019 11:38AM S/P ERCP and laparoscopic cholecystectomy, POD 1 doing fine, pt wants go home today, the post-op care instruction was given, F/U 2 weeks, Supervising Physician Co-Signing Physician Notes Pt was seen and examined. Agreed with Dianne PAINTER exam, assessment and plan. 54 y/o F with PMH ulcerative colitis s/p colectomy in 1999, h/o abdominal adhesions presented to ER with worsening abdominal pain. Pt said that she has been having intermittent abdominal pain for the last several weeks. She said that pain got worst today associated with nausea. She said that her abdominal pain is diffused. She said that she does have chronic loose stools as baseline. Denies an chest pain, palpitation, dizziness, SOB, no sick contact or anyone tested positive with Covid-19. Lab on admission showed AST and LFT above 600's, Alk phophatase 291, Lipase [id number]. CT abd/pelvis showed finding Findings suggest mild acute pancreatitis. Received IVF and morphine in the ER. GI consult. Case discussed with GI recommended MRCP. Will keep NPO for possible ERCP tomorrow. Continue IV hydration and pain control. Will start on IV Zosyn for now as per GI. Will avoid hepatotoxic agents. Continue monitor liver enzymes. MD Desiree Subjective Feeling much better. Pain almost resolved. Physical Exam Constitutional: WD/WN, vitals as above well developed and well nourished Eyes: PERRL, conjunctivae normal, anicteric sclerae ENMT: external ear and nose normal, oropharynx normal Neck: trachea midline, no thyromegaly Respiratory: normal respiratory effort, lungs clear to auscultation Cardiovascular: RRR, no murmur, no edema Gastrointestinal (Abdomen): normal bowel sounds, soft, nontender, no hepatosplenomegaly Percussion/Palpation: abdomen soft all incisions intact, no redness, no drainage Musculoskeletal: no cyanosis or clubbing, extremities motor strength 5/5 Skin: no rashes, warm and dry Neurologic: awake Psychiatric: Orientation: alert and oriented x 3 Results & Data Vital Signs (Past 12 Hours) Vital Signs Temp Pulse Pulse Resp BP Pulse Ox 09/12/19 08:00 66 09/12/19 07:36 37.0 C 70 18 113/71 90 09/12/19 03:44 36.8 C 82 18 126/73 91 09/12/19 00:31 72 Laboratory Results Abnormal lab results 09/12/19 09/12/19 Range/Units 06:11 06:11 RDW Std Deviation 47.0 H (36.4-46.3) fL RDW Coeff of Rae 15.7 H (11.5-14.5) % [place] # (Auto) 0.91 H (0.11-0.59) K/uL Chloride 108 H (98-107) mmol/L BUN/Creatinine Ratio 9.4 L (10-20) Calcium 8.4 L (8.5-10.1) mg/dl Direct Bilirubin 0.4 H D (0-0.2) mg/dl AST 139 H (15-37) U/L ALT 270 H (12-78) U/L Alkaline Phosphatase 161 H (45-117) U/L Albumin 2.7 L (3.4-5.0) gm/dl (1) Acute pancreatitis Acute pancreatitis complication: no infection or necrosis Pancreatitis type: unspecified pancreatitis type Qualified Code(s): K85.90 - Acute pancreatitis without necrosis or infection, unspecified
--- NOTE | 2019-09-12 17:19 | Hospitalist Progress Note ---
Date of Service September 12, 2019 Assessment & Plan (1) Acute pancreatitis: (2) Transaminitis: Pancreatitis, likely secondary to gallstones Per admitting service notes Pt is 54 y/o F with PMH ulcerative colitis s/p colectomy in 1999, h/o abdominal adhesions presented to ER with c/o intermittent abdominal pain x several weeks with progressive worsening. +nausea without vomiting. Has chronic loose stools, denies any increase in amount of loose stools. Denies fever/chills, ETOH use In ER pt afebrile, P: 95, R: 18, BP: 185/103 down to SBP: 145 No leukocytosis, T Bili: 3.8, AST: 639, ALT: 617, Alk Phos: 291, Lipase: 24,617 CT ABD/PELVIS: Findings suggest mild acute pancreatitis. Hepatomegaly and hepatic steatosis. Cholelithiasis. There is postoperative change from subtotal colectomy and bowel anastomoses. No bowel obstruction is identified. periumbilical hernia contains nonobstructed small bowel loops. 09/11/2019 Lipase improved from 24,600 now 600s LFTs also improving Status post ERCP with removal of CBD stone and stent placement by Dr. Lenny Dale 09/10/2019 Status post laparoscopic cholecystectomy 09/11/2019 Diet advanced, tolerating well Cleared for discharge by surgical service Discharge on Augmentin 875 mg twice a day x7 days Follow-up with the general surgery service in 1 week With PCP within 1 week (3) Elevated blood pressure reading: Systolic blood pressure 1 50-1 60s Asymptomatic Likely secondary to IV fluids given Follow-up as an outpatient (4) Ulcerative colitis: S/P colectomy in 1999 DVT Prophylaxis -SCDs Discharge to home Follow-up with PCP and general surgeon as outlined above Admission and Anticipated Discharge Date Admission Date: September 09, 2019 Subjective Follow-up for acute pancreatitis, cholelithiasis Seen resting in bed, comfortable, not in distress Tolerating diet well, has some mild soreness over the lap lowell sites Denies nausea or vomiting, positive BMs No fever chills No chest pain, palpitations, dizziness, shortness of breath Ambulating with no problems States that she is ready and would like to be discharged today Review of Systems Review of Systems: All systems reviewed & are unremarkable except as noted in HPI & below Physical Exam Physical Exam: General- oriented x 3, not in distress, speaks in sentences with no effort or accessory muscle use Eyes- anicteric Neck- no JVD Lungs- clear breath sounds bilaterally, no rales/wheezes Heart- normal rate, regular rhythm; no murmurs Abdomen- normal bowel sounds, nondistended, soft, nontender Lap lowell incision sites: No bleeding or discharge Extremities- no pretibial edema, no calf tenderness Neuro- alert, oriented x 3; no gross focal neurologic deficits Skin- warm & dry Results & Data Results & Data ([facility]) Vital Signs (Past 12 Hours) Vital Signs Temp Pulse Pulse Resp BP Pulse Ox 09/12/19 17:04 36.6 C 88 18 169/94 H 93 09/12/19 15:58 36.6 C 88 18 169/94 H 93 09/12/19 11:51 36.7 C 75 19 144/86 H 91 09/12/19 11:48 36.7 C 75 19 144/86 H 91 09/12/19 08:00 66 09/12/19 07:36 37.0 C 70 18 113/71 90 Laboratory Results Laboratory Results - last 24 hr 09/12/19 09/12/19 06:11 06:11 WBC 9.24 RBC 4.67 Hgb 12.7 Hct 38.4 MCV 82.2 MCH 27.2 MCHC 33.1 RDW Std Deviation 47.0 H RDW Coeff of Rae 15.7 H Plt Count 262 MPV 10.4 Immature Gran % (Auto) 0.2 Neut % (Auto) 65.7 Lymph % (Auto) 23.9 [place] % (Auto) 9.8 Eos % (Auto) 0.3 Baso % (Auto) 0.1 Immature Gran # (Auto) 0.02 Neut # (Auto) 6.06 Lymph # (Auto) 2.21 [place] # (Auto) 0.91 H Eos # (Auto) 0.03 Baso # (Auto) 0.01 Sodium 141 Potassium 4.1 D Chloride 108 H Carbon Dioxide 27 Anion Gap 6.0 BUN 10 Creatinine 1.07 Est Cr Clr Drug Dosing 74.2 Est GFR ( Amer) 67.2 Est GFR (Non-Af Amer) 58.0 BUN/Creatinine Ratio 9.4 L Glucose 95 Calcium 8.4 L Total Bilirubin 0.8 Direct Bilirubin 0.4 H D AST 139 H ALT 270 H Alkaline Phosphatase 161 H Total Protein 7.1 Albumin 2.7 L (1) Acute pancreatitis Acute pancreatitis complication: no infection or necrosis Pancreatitis type: unspecified pancreatitis type Qualified Code(s): K85.90 - Acute pancreatitis without necrosis or infection, unspecified
--- NOTE | 2019-09-12 17:25 | Discharge Summary ---
Date of Service September 12, 2019 Admission HPI Per Admitting Provider Pt is 54 y/o F with PMH ulcerative colitis s/p colectomy in 1999, h/o abdominal adhesions presented to ER with c/o abdominal pain x several weeks. Reports intermittent upper abdominal pain for past several weeks, however on a daily basis the past week with constant aching pain today. C/O nausea, no vomiting. Today eating mashed potatoes for lunch aggravated pain. Reports chronic loose stools, denies any increase in amount of loose stools. Denies fever/chills, diaphoresis, vomiting, melena, hematochezia, DIAL, dizziness, syncope, vision changes, neck pain, CP, SOB, orthopnea, palpitations, cough, sore throat, choking, otalgia, rhinorrhea, paresthesias, weakness, extremity weakness, extremity edema, rashes, urinary symptoms. Admission Exam Per Admitting Provider General: no distress, obese Head: normocephalic, atraumatic Eyes: PERRL, EOM's intact, conjunctiva non-injected, anicteric ENT: normal inspection external ears, nose, mucous membranes moist Neck: supple, trachea midline, non-tender Lungs: clear, no respiratory distress, no wheezing/rhonchi/rales CV: RRR, no murmur, no pretibial edema Abd: normal BS, protuberant, soft, +tenderness to palpation epigastric, RUQ, LUQ without rebound or guarding Ext: no cyanosis, no calf tenderness Neuro: A&O x 3, no focal deficits noted, normal affect Skin: warm, dry Principal Diagnosis ACUTE PANCREATITIS, ACUTE CHOLECYSTITIS WITH CHOLELITHIASIS Discharge Exam General- oriented x 3, not in distress, speaks in sentences with no effort or accessory muscle use Eyes- anicteric Neck- no JVD Lungs- clear breath sounds bilaterally, no rales/wheezes Heart- normal rate, regular rhythm; no murmurs Abdomen- normal bowel sounds, nondistended, soft, nontender Lap lowell incision sites: No bleeding or discharge Extremities- no pretibial edema, no calf tenderness Neuro- alert, oriented x 3; no gross focal neurologic deficits Skin- warm & dry Discharge Data Allergies Allergy/AdvReac Type Severity Reaction Status Date / Time mercaptopurine Allergy Unknown Unknown Verified 09/09/19 20:38 Latex, Natural Rubber AdvReac Rash Verified 09/11/19 14:11 Consultations 09/09/19 20:32 ED Decision to Admit Stat 09/09/19 22:46 Consult General Surgery Routine 09/10/19 10:10 Consult General Surgery Routine 09/10/19 10:13 Consult General Surgery Routine Procedures Performed Operation Date: 09/10/19 07:30 Actual Procedures p Endoscopic Retrograde Cholangiopancreato(Not Applicable) - Shala Dale Operation Date: 09/11/19 14:00 Actual Procedures p Laparoscopic Cholecystectomy(Not Applicable) - Lisa Dale MD Ordered Studies 09/09/19 18:54 CT abd pelvis IV con only Stat FINDINGS: Lung bases: The heart is normal in size and without pericardial effusion. The lung bases are clear noting dependent atelectasis. Liver: The contrast-enhanced liver is enlarged, measuring 20.3 cm in length. The liver demonstrates diffusely diminished attenuation consistent with hepatic steatosis. There is no intrahepatic biliary ductal dilatation. The hepatic veins and portal veins are patent. Gallbladder: There are calcified gallstones with no CT evidence of acute cholecystitis. Spleen: Normal in size and attenuation. Pancreas: Mild stranding and fluid is suggested in the pancreatic tail. No organized Fluid collection is seen. The pancreas enhances homogeneously. Adrenal glands: Unremarkable. Kidneys: The contrast enhanced kidneys are normal in size and without hydronephrosis. The kidneys enhance symmetrically. Abdominal vasculature: The abdominal aorta is normal in course and caliber. Bowel: Postoperative change is consistent with lower anterior resection and subtotal colectomy with anastomosis. A small bowel anastomosis is seen in the right lower quadrant. There is evidence of active colic anastomosis A periumbilical hernia contains nonobstructed loops of small bowel. No bowel obstruction is identified. Peritoneum: There is no intraperitoneal free air or abdominal ascites. There are 2 umbilical hernias, one of which contains small bowel loops. Lymphadenopathy: None. Pelvic viscera: The bladder, uterus, and adnexa are normal as imaged. Skeletal structures: The skeletal structures are osteopenic. There is mild lumbosacral spondylosis. Sclerotic change is noted in the sacroiliac joints. No lytic or blastic lesions are seen. IMPRESSION: 1. Findings suggest mild acute pancreatitis. Correlation with clinical findings and serum amylase/lipase levels will be required. 2. Hepatomegaly and hepatic steatosis. 3. Cholelithiasis. 4. There is postoperative change from subtotal colectomy and bowel anastomoses. No bowel obstruction is identified. 5. A periumbilical hernia contains nonobstructed small bowel loops. 6. Additional findings as above. 09/09/19 21:25 MR MRCP Urgent FINDINGS: Small gallstones are noted in the fundal region, best seen on the axial series. The gallbladder is otherwise normal in appearance. There is no intra or extrahepatic biliary ductal dilatation. The common bile duct measures up to 5 mm in diameter. There is a small filling defect within the distal common bile duct seen on coronal high-resolution MRCP image #91. This is suspicious for choledocholithiasis. The pancreatic duct is normal in caliber. The liver is enlarged, measuring 19 cm in length. There is evidence of steatosis. The unenhanced liver is otherwise grossly unremarkable. The unenhanced spleen, adrenal glands, and kidneys are grossly normal. Minimal stranding and trace fluid is seen adjacent the pancreatic head. This is consistent with the reported history of acute pancreatitis. The pancreas is otherwise normal in appearance. No organized peripancreatic fluid collection is identified. The abdominal aorta is normal in caliber. There is no bowel obstruction. The bony structures demonstrate normal marrow signal intensity. IMPRESSION: 1. Findings of mild acute pancreatitis are again seen adjacent the pancreatic tail. 2. Cholelithiasis without evidence of acute cholecystitis. 3. There is no intra or extrahepatic biliary ductal dilatation. 4. Suspect choledocholithiasis with a small stone in the distal common duct near the pancreatic head. 5. Hepatomegaly and hepatic steatosis. 09/10/19 [place] ERCP biliary ductal Routine Hospital Course (1) Acute pancreatitis: (2) Transaminitis: Pancreatitis, likely secondary to gallstones Per admitting service notes Pt is 54 y/o F with PMH ulcerative colitis s/p colectomy in 1999, h/o abdominal adhesions presented to ER with c/o intermittent abdominal pain x several weeks with progressive worsening. +nausea without vomiting. Has chronic loose stools, denies any increase in amount of loose stools. Denies fever/chills, ETOH use In ER pt afebrile, P: 95, R: 18, BP: 185/103 down to SBP: 145 No leukocytosis, T Bili: 3.8, AST: 639, ALT: 617, Alk Phos: 291, Lipase: 24,617 CT ABD/PELVIS: Findings suggest mild acute pancreatitis. Hepatomegaly and hepatic steatosis. Cholelithiasis. There is postoperative change from subtotal colectomy and bowel anastomoses. No bowel obstruction is identified. periumbilical hernia contains nonobstructed small bowel loops. placed on bowel rest, IV Zosyn GI and Gen Surg consulted Status post ERCP with removal of CBD stone and stent placement by Dr. Lenny Dale 09/10/2019 Lipase significantly improved from 24,600 to 600s LFTs also improved Status post laparoscopic cholecystectomy 09/11/[address] Lisa Dale Diet advanced, tolerated well Cleared for discharge by surgical service Discharge on Augmentin 875 mg twice a day x7 days Follow-up with the general surgery service in 1 week With PCP within 1 week Repeat outpatient ERCP in 6 to 8 weeks (3) Elevated blood pressure reading: Systolic blood pressure 150-1 60s Asymptomatic Likely secondary to IV fluids given Follow-up as an outpatient (4) Ulcerative colitis: S/P colectomy in 1999 (5) Abnormal CT of the abdomen: full report noted above CT abd/pelvis: Hepatomegaly and hepatic steatosis. A periumbilical hernia contains nonobstructed small bowel loops. -- follow up as outpatient DVT Prophylaxis -SCDs ordered Discharge to home Follow-up with PCP and general surgeon as outlined above Repeat outpatient ERCP in 6 to 8 weeks Total Time Total Time Spent Total Time Spent (In Minutes): > 30 minutes Discharge Plan Discharge Items Patient Disposition: Home - Self-Care Reason For Visit: PANCREATITIS Discharge Diagnosis: Acute pancreatitis, common bile duct stone, S/P ERCP; Acute cholecystitis, gallbladder stones, status post laparoscopic cholecystectomy Condition on Discharge: Good Activity: As commented below Lifting: No more than 25 pounds Lifting Comment: for 4 weeks Bathing: Keep incision dry and May shower/bathe in 3 days Sexual Activity: After two weeks Exercise/Sports: Rest today Driving/Machine Use: no driving while taking pain medicine Non-emergency contact: Surgeon Call non-emergency contact if: you have any medication questions, your symptoms worsen, your pain is not controlled, your pain is worsening, your pain is unusual for you, your pain is concerning for you, you have a fever and your rectal temperature is above 100.4 Follow-up/Referrals: Roma Diallo MD [Physician] - Arlene Ochoa PA-C [Primary Care Provider] - (follow up Dr. Dale in 2 weeks [phone] Agree-I have documented within the medical record.) Diet: Heart Healthy and Low Fat Addtl Attending Provider Instructions: Your new medication is Augmentin-antibiotic, to be taken for 7 days. Also, take a probiotic daily while taking Augmentin, and at least 2 weeks later. Drink plenty of water. Keep incisions dry. Daily dressing changes. You may shower tomorrow Call primary care physician or the surgeon, or return to the ER immediately if with worsening of symptoms, Including worsening abdominal pain, fevers or chills, nausea vomiting. Follow-up with your primary care physician within 1 week. Please request for them to obtain your hospital discharge summary prior to your visit. Follow-up with [facility] general surgeon Dr. Diallo in 1 to 2 weeks. Contact information as outlined above. Pending Studies at Discharge: Yes Studies:: gallbladder pathology report Stand-Alone Forms: [facility], Smoking Cessation Medications and DC Order Prescriptions: New oxycodone-acetaminophen [Percocet] 5-325 mg tablet 1 tab PO Q6H PRN (Reason: pain) Qty: 14 RF: 0 amoxicillin-pot clavulanate [Augmentin] 875-125 mg tablet 1 tab PO Q12H Qty: 14 RF: 0 Continued multivitamin Tablet 1 tab PO DAILY RF: 0 Discharge Orders: Discharge Order (Routine); Ordered 09/12/19 Ordered By: Roma Rey/Other Patient Handouts: Pancreatitis, Cholecystectomy Laparoscopic Dc Admission Data Admit Date/Time: 09/09/19 21:48 Attending Provider: Aristides Juarez Admit Provider: Merrill Ramírez Primary Care Provider: Arlene Ochoa Other Providers: Merrill Ramírez ; Lisa Dale ; Shala Dale ; David Harp ; Jennifer Lin ; Aayush Saavedra ; Castillo Gifford ; David Marquez ; Deann Ham ; Rupert Rodriguez ; Kay Cedillo ; Aravind Sheets Jr ; Roma Diallo ; Bouchra Kerns ; Popeye Taylor Other Interventions: Discharge Summary Assessment (RN) Last Done: 09/12/19 17:04 DC Date/Time DO NOT enter until pt leaves facility: 09/12/19 18:37
[2019-09-12] MEDS: OXYCODONE/ACETAMINOPHEN 5mg/325mg TAB PO PRN (18:14)
== END 2019-09-12 18:37 | disposition home or self-care (01) | DRG 417 ==
LOC: ED 17:59 → 2N 21:48 → SUATTDRO 21:48 → 2N 22:45